=== PATIENT | female | born 1950 | race Two or more races ===

== ENCOUNTER 2020-02-01 15:33 | Inpatient (IN) | payer MEDICARE, OTHER ==
[~2020-02-01] VITALS: Ht 157.5 cm; Wt 102.1 kg
[2020-02-01 16:41] LABS: Basophils # (auto) 0 10 ^3/uL (0-0.2); Basophils % (auto) 0.5 % (0.0-2.0); Eosinophils # (auto) 0 10 ^3/uL (0-0.8); Eosinophils % (auto) 0.8 % (0.0-7.0); Hematocrit 39.9 % (36.0-46.0); Hemoglobin 13.2 g/dL (12.2-16.2); Lymphocytes # (auto) 1.7 10 ^3/uL (0.4-5.4); Lymphocytes % (auto) 29.2 % (10.0-50.0); Mean Corpuscular Hemoglobin 28.3 pg (28.0-32.0); Mean Corpuscular Hgb Conc. 33.1 g/dL (32.0-36.0); Mean Corpuscular Volume 85.5 fL (80.0-100.0); Monocytes # (auto) 0.4 10 ^3/uL (0-1.3); Monocytes % (auto) 7.1 % (0.0-12.0); Neutrophils # (auto) 3.7 10 ^3/uL (1.6-8.6); Neutrophils % (auto) 62.4 % (37.0-80.0); Nucleated Red Blood Cells % 0.1 %; Platelet Count (auto) 217 10^3/uL (140-450); Red Blood Cells 4.67 10^6/uL (4.0-5.20); White Blood Cell 5.9 10^3/uL (4.4-10.8)
[2020-02-01 16:59] LABS: Albumin 3.3 g/dL (3.4-5.0); Anion Gap 6 (5-15); Blood Urea Nitrogen 19 mg/dL (7-18); Calcium 8.7 mg/dL (8.5-10.1); Carbon Dioxide 29 mmol/L (21-32); Chloride 102 mmol/L (98-107); Glucose 325 mg/dL (74-106); INR 1.07 (0.9-1.15); Potassium 3.9 mmol/L (3.5-5.1); Sodium 137 mmol/L (136-145)
[2020-02-01 17:04] LABS: Alanine Aminotransferase 20 U/L (13-56); Alkaline Phosphatase 67 U/L (45-117); Aspartate Aminotransferase 13 U/L (15-37); BUN/Creatinine Ratio 23.2; Bilirubin, Total 0.8 mg/dL (0.2-1.0); GFR African American 88 mL/min; GFR Non-African American 73 mL/min; Total Protein 6.8 g/dL (6.4-8.2)
[2020-02-01] MEDS ORDERED: ENOXAPARIN SOD 80 MG/0.8ML SYRINGE SC ONE (17:30)
[2020-02-01] MEDS ORDERED: LORazepam 2MG/ML-1ML VIAL IV ONE (18:00)
[2020-02-01] MEDS ORDERED: MORPHINE SULF INJ 2 MG/ML SYRINGE 1ML IV PRN ×2 (19:15→19:30)
[2020-02-01] MEDS ORDERED: NITROGLYCERIN 0.4 MG SL TAB SL PRN (19:15)
[2020-02-01] MEDS ORDERED: DEXTROSE (50%) 50ML SYRG IV PRN (19:30)
[2020-02-01] MEDS ORDERED: ACETAMINOPHEN 500 MG TAB PO PRN (19:30)
[2020-02-01] MEDS ORDERED: LACTULOSE 20Gm/30ML SOLN PO PRN (19:30)
[2020-02-01] MEDS ORDERED: traMADol HCL 50 MG TAB PO PRN (19:30)
[2020-02-01] MEDS ORDERED: TEMAZEPAM 15 MG CAP PO PRN (19:30)
[2020-02-01] MEDS ORDERED: PROMETHAZINE HCL 25 MG/ML 1ML IV PRN (19:30)
[2020-02-01] MEDS ORDERED: IOHEXOL 350 MG/ML 100ML IJ ONE (19:36)
[2020-02-01] MEDS ORDERED: ENOXAPARIN SOD 80 MG/0.8ML SYRINGE SC SCH (22:00)
[2020-02-01] MEDS: CARVEDILOL 3.125 MG TAB PO SCH (22:16)
[2020-02-01] MEDS: ACCU-CHEK COMFORT CURVE STRIP VI SCH (22:17)
[2020-02-01] MEDS: InsuLIN REG 1unit/0.01ml Soln (100units/ml) SC SCH (22:17)
[2020-02-01 22:34] VITALS: BP 112/75
--- NOTE | 2020-02-01 22:34 | NUR ---
Telemetry admit from ER Patient admitted to Telemetry unit. Patient oriented to primary RN, unit, room, bed, and unit policies regarding patient care and visiting hours. Patient now on continuous telemetry monitoring, tele box # [id number] and telemetry reading on arrival to unit is sinus rhythm. Patient placed on bedside oxygen 2L NC, weighed by bedscale and encouraged to call if they need something. All questions and concerns addressed, patient verbalized understanding. Safety precautions in place bed is in lowest position and locked, bed rails 2x, bed alarm on. Will continue to monitor patient Q1 and PRN.
[2020-02-01] MEDS ORDERED: METF-371 PO (23:00)
[2020-02-01] MEDS ORDERED: METO10TA3 PO (23:02)
[2020-02-01] MEDS ORDERED: DICY10CA12 PO (23:02)
[2020-02-01] MEDS ORDERED: ENAL2.5T7 PO (23:02)
[2020-02-02 04:01] LABS: Urine Bacteria MOD /hpf (None Seen); Urine Blood Negative /uL (Negative); Urine Mucus FEW (None Seen); Urine WBC 5 /hpf (0 - 5)
[2020-02-02 04:04] LABS: Urine Specific Gravity > 1.035 (1.001-1.035)
[2020-02-02 05:00] VITALS: BP 119/66
[2020-02-02] MEDS: ACCU-CHEK COMFORT CURVE STRIP VI SCH ×4 (06:28→22:00)
[2020-02-02] MEDS: InsuLIN REG 1unit/0.01ml Soln (100units/ml) SC SCH ×4 (06:28→22:04)
--- NOTE | 2020-02-02 07:18 | NUR ---
End of Shift Note Endorsed care to dayshift RN. At this time patient has no s/s of distress or SOB. Awakens and responsive to name and touch.
--- NOTE | 2020-02-02 07:59 | NUR ---
Opening Shift Note Assumed care of patient, awake and alert sitting up at the side of the bed eating. No S/S of distress/SOB or pain. Instructed on POC and to call for assist PRN, will continue to monitor for changes Q1hr and PRN.
[2020-02-02 09:00] VITALS: BP 130/66
[2020-02-02] MEDS: ENALAPRIL MALEATE 2.5 MG TAB PO SCH (09:41)
[2020-02-02] MEDS: CARVEDILOL 3.125 MG TAB PO SCH ×2 (09:41→22:00)
[2020-02-02] MEDS ORDERED: ENOXAPARIN SOD 80 MG/0.8ML SYRINGE SC SCH (10:00)
--- NOTE | 2020-02-02 10:25 | NUR ---
Diarrhea Patient states that she is having diarrhea. Patient was encouraged to notify RN if it continues so we can get stool sample.
[2020-02-02 13:00] VITALS: BP 114/56
[2020-02-02 16:56] VITALS: BP 130/68
[2020-02-02 22:00] VITALS: BP 129/28
[2020-02-02] MEDS ORDERED: INSULIN LANTUS (GLARGINE) 1 /0.01ml (100units/ml) SC SCH (22:00)
[2020-02-02] MEDS: APIXABAN 5 MG TAB PO SCH (22:00)
[2020-02-03 05:00] VITALS: BP 139/72
--- NOTE | 2020-02-03 06:00 | NUR ---
Unable to obtain CDIFF sample Per patient she did not have any diarrhea or bowel movement overnight. Will make dayshift nurse aware. Will continue to monitor patient Q1 and PRN.
[2020-02-03] MEDS: ACCU-CHEK COMFORT CURVE STRIP VI SCH ×2 (06:57→12:44)
[2020-02-03] MEDS: InsuLIN REG 1unit/0.01ml Soln (100units/ml) SC SCH ×2 (07:00→12:45)
--- NOTE | 2020-02-03 07:10 | NUR ---
End of Shift Note Endorsed care to dayshift RN. At this time patient has no s/s of distress or SOB.
[2020-02-03 07:17] LABS: Basophils # (auto) 0 10 ^3/uL (0-0.2); Basophils % (auto) 0.5 % (0.0-2.0); Eosinophils # (auto) 0.1 10 ^3/uL (0-0.8); Eosinophils % (auto) 1.4 % (0.0-7.0); Hematocrit 37.3 % (36.0-46.0); Hemoglobin 12.5 g/dL (12.2-16.2); Lymphocytes # (auto) 1.9 10 ^3/uL (0.4-5.4); Lymphocytes % (auto) 35.8 % (10.0-50.0); Mean Corpuscular Hemoglobin 28.6 pg (28.0-32.0); Mean Corpuscular Hgb Conc. 33.4 g/dL (32.0-36.0); Mean Corpuscular Volume 85.8 fL (80.0-100.0); Monocytes # (auto) 0.5 10 ^3/uL (0-1.3); Monocytes % (auto) 8.7 % (0.0-12.0); Neutrophils # (auto) 2.8 10 ^3/uL (1.6-8.6); Neutrophils % (auto) 53.6 % (37.0-80.0); Nucleated Red Blood Cells % 0.1 %; Platelet Count (auto) 194 10^3/uL (140-450); Red Blood Cells 4.35 10^6/uL (4.0-5.20); Red Cell Distribution Width 14.1 % (11.8-14.3); White Blood Cell 5.3 10^3/uL (4.4-10.8)
[2020-02-03 07:35] LABS: Potassium 3.8 mmol/L (3.5-5.1)
[2020-02-03 07:46] LABS: Calcium 8.8 mg/dL (8.5-10.1); Magnesium 2.1 mg/dL (1.6-2.6); Total Protein 6.3 g/dL (6.4-8.2)
[2020-02-03 09:00] VITALS: BP 145/65
[2020-02-03] MEDS: CARVEDILOL 3.125 MG TAB PO SCH (09:19)
[2020-02-03] MEDS: ENALAPRIL MALEATE 2.5 MG TAB PO SCH (09:19)
[2020-02-03] MEDS: APIXABAN 5 MG TAB PO SCH (09:20)
--- NOTE | 2020-02-03 10:10 | NUR ---
Hospitalist Rounding Dr. Hussein at bedside with patient and Nepali speaking RN.
[2020-02-03 12:34] VITALS: BP 125/86
[2020-02-03] MEDS ORDERED: METF-372 PO (13:31)
[2020-02-03] MEDS ORDERED: LEVO500T21 PO (13:32)
[2020-02-03] MEDS ORDERED: INSLANTI SC (13:34)
[2020-02-03 15:27] VITALS: BP 131/55
--- NOTE | 2020-02-03 15:36 | NUR ---
assessment Patient is a 69 year old female. Per patients daughter Gayle prior to admission patient lived home with her and family and needed assistance. Patient has a cane for home use. Patients PCP is Dr Sawant at [facility]. I informed Gayle of patients home health order and offered her a list of medicare providers. Per Cinthia she has no preference. order has been sent to [facility]. Indra Guerrero at [facility] service will start within 24 to 48 hours. Lakia choudhary has been notified as well as Gayle. Addendum: 02/03/20 at 1544 by Sarah BAUTISTA Amended: Links added.
[2020-02-03 16:39] VITALS: BP 129/65
--- NOTE | 2020-02-03 18:44 | NUR ---
Discharge instructions given as ordered. Encourage to follow up with PMD as instructed. All questions and concerns addressed. Patient verbalized understanding. Medication reconciliation form completed and copy given to patient. Home medications held in Pharmacy returned to patient, and needed vaccines given. IV removed with catheter intact and pressure dressing applied. Telemetry unit returned to ICU. Patient taken to vehicle via wheelchair with all personal belongings, accompanied by staff. No distress noted at time of departure.
[2020-02-09] MEDS ORDERED: APIXABAN 5 MG TAB PO SCH (22:00)
== END 2020-02-03 18:44 | disposition home health service (06) | DRG 299 ==
LOC: ER 15:33 → TELE 15:34 → TELE-WESTW 22:34
PROVIDERS: ADMIT Internal Medicine; ATTEND Internal Medicine
DX: I82.412 Acute embolism and thrombosis of left femoral vein (principal); I26.99 Other pulmonary embolism without acute cor pulmonale; Z68.41 Body mass index [BMI] 40.0-44.9, adult; I10 Essential (primary) hypertension; E11.65 Type 2 diabetes mellitus with hyperglycemia; E04.2 Nontoxic multinodular goiter; E78.5 Hyperlipidemia, unspecified; E66.9 Obesity, unspecified; Z82.49 Family history of ischemic heart disease and other diseases of the circulatory system; Z83.3 Family history of diabetes mellitus
CPT/HCPCS: 36415; 71275; 76536; 80053; 80061; 81001; 82550; 82962; 83036; 83735; 83880; 84436; 84443; 84481; 84484; 85025; 85610; 85730; 87086; 93306; 93971; 96372; 96374; 97163; G0378; J1815

== ENCOUNTER → 2020-02-27 | Outpatient (CLI) | payer MEDICARE ==
[~2020-02-27] VITALS: Ht 157.5 cm; Wt 83.9 kg
[~2020-02-27] MED LIST: ADENOSINE 70 MG in GIVE UN-DILUTED 0 ML IV ONE; ADENOSINE 90 MG/30 ML INJ IV ONE; DICY10CA12 PO; ENAL2.5T7 PO; INSLANTI SC; LEVO500T21 PO; METF-372 PO; METO10TA3 PO
== END | disposition home or self-care (01) ==
LOC: Rad HDHVI 02-12 13:20
PROVIDERS: ATTEND Internal Medicine
DX: I10 Essential (primary) hypertension (principal); E11.9 Type 2 diabetes mellitus without complications; I82.409 Acute embolism and thrombosis of unspecified deep veins of unspecified lower extremity; I26.99 Other pulmonary embolism without acute cor pulmonale; E78.5 Hyperlipidemia, unspecified; R63.8 Other symptoms and signs concerning food and fluid intake; R07.89 Other chest pain
CPT/HCPCS: 78452; 93005; 96374; 96375; A9500; J0153

== ENCOUNTER → 2020-03-06 | Outpatient (CLI) | payer MEDICARE ==
[~2020-03-06] MED LIST changes: -ADENOSINE 70 MG in GIVE UN-DILUTED 0 ML IV ONE; -ADENOSINE 90 MG/30 ML INJ IV ONE
[2020-03-06 12:36] LABS: Potassium 4.1 mmol/L (3.5-5.1)
[2020-03-06 12:43] LABS: Albumin 3.4 g/dL (3.4-5.0); Calcium 9.1 mg/dL (8.5-10.1); Total Protein 7.2 g/dL (6.4-8.2)
[2020-03-06 12:48] LABS: Free T4 (Free Thyroxine) 1.39 ng/dL (0.89-1.76)
[2020-03-06 12:50] LABS: T3 Total 0.81 ng/mL (0.60-1.81)
== END | disposition home or self-care (01) ==
LOC: LAB 08:42
PROVIDERS: ATTEND Internal Medicine Cardiovascular Disease
DX: E11.9 Type 2 diabetes mellitus without complications (principal); I10 Essential (primary) hypertension; E03.9 Hypothyroidism, unspecified
CPT/HCPCS: 36415; 80053; 83036; 84439; 84443; 84480

== ENCOUNTER → 2020-04-07 | Outpatient (CLI) | payer MEDICARE | END | disposition home or self-care (01) | LOC: Rad HDHVI 15:12 | PROVIDERS: ATTEND Internal Medicine Cardiovascular Disease | DX: M47.812 Spondylosis without myelopathy or radiculopathy, cervical region (principal); M85.88 Other specified disorders of bone density and structure, other site; M54.2 Cervicalgia; M46.02 Spinal enthesopathy, cervical region; M48.8X2 Other specified spondylopathies, cervical region; M19.90 Unspecified osteoarthritis, unspecified site | CPT/HCPCS: 72040 ==

== ENCOUNTER 2020-07-07 12:39 | Emergency (ER) | payer MEDICARE ==
[~2020-07-07] VITALS: Ht 160 cm; Wt 85.3 kg
[~2020-07-07 12:39] MED LIST changes: -LEVO500T21 PO; +LEVO500T31 PO
[2020-07-07 14:47] VITALS: BP 112/81
== END 2020-07-07 15:30 | disposition home or self-care (01) ==
LOC: ER 12:39
DX: U07.1 COVID-19 (principal); M54.16 Radiculopathy, lumbar region; M19.90 Unspecified osteoarthritis, unspecified site; E11.9 Type 2 diabetes mellitus without complications; I10 Essential (primary) hypertension
CPT/HCPCS: 71045

== ENCOUNTER 2020-07-11 22:50 | Inpatient (IN) | payer MEDICARE ==
[~2020-07-11] VITALS: Ht 152.4 cm; Wt 84.0 kg
[2020-07-12 00:36] LABS: Basophils # (auto) 0 10 ^3/uL (0-0.2); Basophils % (auto) 0.3 % (0.0-2.0); Eosinophils # (auto) 0 10 ^3/uL (0-0.8); Hematocrit 45.8 % (36.0-46.0); Hemoglobin 15.4 g/dL (12.2-16.2); Lymphocytes # (auto) 0.7 10 ^3/uL (0.4-5.4); Lymphocytes % (auto) 9.5 % (10.0-50.0); Mean Corpuscular Hemoglobin 28.4 pg (28.0-32.0); Mean Corpuscular Hgb Conc. 33.6 g/dL (32.0-36.0); Mean Corpuscular Volume 84.6 fL (80.0-100.0); Monocytes # (auto) 0.8 10 ^3/uL (0-1.3); Monocytes % (auto) 10.1 % (0.0-12.0); Neutrophils # (auto) 6.1 10 ^3/uL (1.6-8.6); Neutrophils % (auto) 80.1 % (37.0-80.0); Nucleated Red Blood Cells % 0.1 %; Platelet Count (auto) 228 10^3/uL (140-450); Red Blood Cells 5.42 10^6/uL (4.0-5.20); Red Cell Distribution Width 14.1 % (11.8-14.3); White Blood Cell 7.6 10^3/uL (4.4-10.8)
[2020-07-12 00:55] LABS: Alanine Aminotransferase 23 U/L (13-56); Albumin 2.5 g/dL (3.4-5.0); Anion Gap 18 (5-15); Aspartate Aminotransferase 48 U/L (15-37); BUN/Creatinine Ratio 18.3; Blood Urea Nitrogen 26 mg/dL (7-18); Calcium 9.1 mg/dL (8.5-10.1); Carbon Dioxide 20 mmol/L (21-32); Chloride 95 mmol/L (98-107); GFR African American 47 mL/min; GFR Non-African American 39 mL/min; Sodium 133 mmol/L (136-145)
[2020-07-12 00:57] LABS: INR 1.1 (0.9-1.15); Partial Thromboplastin Time 30.3 sec (23.0-31.2)
[2020-07-12 00:59] LABS: Alkaline Phosphatase 56 U/L (45-117); Bilirubin, Total 1.1 mg/dL (0.2-1.0); Total Protein 7.2 g/dL (6.4-8.2)
[2020-07-12 01:07] LABS: Glucose 429 mg/dL (74-106)
[2020-07-12] MEDS ORDERED: dilTIAZem 25 MG/5 ML VIAL IV ONE (02:00)
[2020-07-12] MEDS ORDERED: SODIUM CHLORIDE 0.9% 1,000 ML IV ONE ×2 (02:00→11:00)
[2020-07-12 03:28] LABS: Lactic Acid w/Reflex 2.8 mmol/L (0.4-2.0)
[2020-07-12] MEDS ORDERED: InsuLIN REG 1unit/0.01ml Soln (100units/ml) IV ONE (03:45)
[2020-07-12] MEDS ORDERED: cefTRIAXone 1GM/50ML D5W 50 ML IV ONE (03:45)
[2020-07-12] MEDS: SODIUM CHLORIDE 0.9% 1,000 ML IV SCH ×4 (04:31→22:30)
[2020-07-12] MEDS ORDERED: ALBUMIN 5% 250 ML IV ONE (05:15)
[2020-07-12] MEDS ORDERED: DEXTROSE (50%) 50ML SYRG IV PRN (05:15)
[2020-07-12] MEDS ORDERED: DOCUSATE SOD 100 MG CAP PO PRN (05:15)
[2020-07-12] MEDS ORDERED: HYDROcodone-ACET 5/325MG TAB PO PRN (05:15)
[2020-07-12] MEDS ORDERED: MORPHINE SULF INJ 2 MG/ML SYRINGE 1ML IV PRN (05:15)
[2020-07-12] MEDS ORDERED: ONDANSETRON HCL 4 MG/2 ML VIAL IV PRN (05:15)
[2020-07-12] MEDS ORDERED: NITROGLYCERIN 0.4 MG SL TAB SL PRN (05:15)
[2020-07-12] MEDS ORDERED: ACETAMINOPHEN 500 MG TAB PO PRN (05:15)
[2020-07-12] MEDS: INSULIN LANTUS (GLARGINE) 1 /0.01ml (100units/ml) SC SCH ×2 (06:43→21:54)
[2020-07-12] MEDS: InsuLIN REG 1unit/0.01ml Soln (100units/ml) SC SCH ×5 (08:28→23:49)
[2020-07-12] MEDS: ACCU-CHEK COMFORT CURVE STRIP VI SCH ×5 (08:28→23:48)
[2020-07-12] MEDS ORDERED: levoFLOXacin 500MG 100 ML IV SCH (10:00)
[2020-07-12] MEDS ORDERED: REMDESIVIR PER PHARMACY 0 ML IV SCH (11:00)
[2020-07-12] MEDS ORDERED: diphenhdrAMINE HCL 50 MG/1 ML VL IV PRN (11:00)
[2020-07-12] MEDS ORDERED: levoFLOXacin 500MG 100 ML IV ONE (11:15)
[2020-07-12] MEDS: HEPARIN SODIUM (PORCINE) 5000 UNITS/ML 1ML VIAL SC SCH ×2 (11:33→21:54)
[2020-07-12] MEDS: CHOLECALCIFEROL (VITD3) 2,000 UNIT CAP/TAB PO SCH (11:36)
[2020-07-12] MEDS: ASCORBIC ACID 1,000 MG TAB PO SCH (11:36)
[2020-07-12] MEDS: MULTIPLE VITAMIN TAB PO SCH (11:37)
[2020-07-12] MEDS: ZINC SULFATE 220mg CAP or TAB PO SCH (11:37)
[2020-07-12] MEDS: FAMOTIDINE (10MG/ML) 2ML VL IV SCH ×2 (11:39→21:47)
[2020-07-12] MEDS: DexAMETHasone SOD PHOS 10MG/1ML VIAL INJ IV SCH (11:39)
[2020-07-12 12:00] VITALS: BP 112/51
[2020-07-12] MEDS: DOXYCYCLINE 100MG/250ML 250 ML IV SCH ×2 (12:05→21:47)
[2020-07-12] MEDS: BUDESONIDE (INHALATION) 180 MCG IH IN SCH ×2 (14:40→19:56)
[2020-07-12] MEDS ORDERED: REMDESIVIR 200 MG in NS 210ml LOADING DOSE ADULT IV ONE (15:00)
[2020-07-12 16:00] VITALS: BP 114/66
[2020-07-12] MEDS: ALBUTEROL SULF HFA 90MCG INH 200DOSE IN PRN (19:57)
[2020-07-12 23:24] VITALS: BP 135/75
[2020-07-12 23:40] VITALS: BP 131/83
[2020-07-12] MEDS ORDERED: VANCOMYCIN 1GM/250ML 250 ML IV ONE (23:45)
[2020-07-12] MEDS ORDERED: VANCOMYCIN PER PHARMACY 0 MG IV SCH (23:45)
[2020-07-13] VITALS: BP 132/72
[2020-07-13 02:11] VITALS: BP 132/71
[2020-07-13] MEDS: ACCU-CHEK COMFORT CURVE STRIP VI SCH ×3 (04:00→18:00)
[2020-07-13] MEDS: InsuLIN REG 1unit/0.01ml Soln (100units/ml) SC SCH ×3 (04:00→18:00)
[2020-07-13] MEDS ORDERED: DICY20TA10 PO (06:34)
[2020-07-13] MEDS ORDERED: APIX5TAB PO (06:41)
[2020-07-13] MEDS ORDERED: DAPA1TAB4 PO (06:41)
[2020-07-13] MEDS: INSULIN LANTUS (GLARGINE) 1 /0.01ml (100units/ml) SC SCH ×2 (06:47→22:00)
[2020-07-13] MEDS ORDERED: IVERMECTIN 3 MG TAB PO ONE (07:00)
[2020-07-13] MEDS: ALBUTEROL SULF HFA 90MCG INH 200DOSE IN PRN ×2 (07:15→20:59)
[2020-07-13] MEDS: BUDESONIDE (INHALATION) 180 MCG IH IN SCH ×2 (07:15→20:58)
[2020-07-13 08:00] VITALS: BP 138/85
[2020-07-13 08:19] LABS: Basophils # (auto) 0 10 ^3/uL (0-0.2); Basophils % (auto) 0.1 % (0.0-2.0); Eosinophils # (auto) 0 10 ^3/uL (0-0.8); Hematocrit 38.3 % (36.0-46.0); Lymphocytes # (auto) 0.4 10 ^3/uL (0.4-5.4); Lymphocytes % (auto) 5.9 % (10.0-50.0); Mean Corpuscular Hemoglobin 27.7 pg (28.0-32.0); Mean Corpuscular Volume 81.4 fL (80.0-100.0); Monocytes # (auto) 0.4 10 ^3/uL (0-1.3); Monocytes % (auto) 5.6 % (0.0-12.0); Neutrophils # (auto) 6.4 10 ^3/uL (1.6-8.6); Neutrophils % (auto) 88.4 % (37.0-80.0); Platelet Count (auto) 198 10^3/uL (140-450); White Blood Cell 7.2 10^3/uL (4.4-10.8)
[2020-07-13 08:41] LABS: Albumin 2.4 g/dL (3.4-5.0); BUN/Creatinine Ratio 59.1; Calcium 9.1 mg/dL (8.5-10.1); Potassium 3.7 mmol/L (3.5-5.1)
[2020-07-13 08:43] LABS: Bilirubin, Total 0.6 mg/dL (0.2-1.0); Total Protein 6.3 g/dL (6.4-8.2)
[2020-07-13] MEDS: DexAMETHasone SOD PHOS 10MG/1ML VIAL INJ IV SCH (09:49)
[2020-07-13] MEDS: ZINC SULFATE 220mg CAP or TAB PO SCH (09:49)
[2020-07-13] MEDS: FAMOTIDINE (10MG/ML) 2ML VL IV SCH ×2 (09:49→23:45)
[2020-07-13] MEDS: MULTIPLE VITAMIN TAB PO SCH (09:50)
[2020-07-13] MEDS: SODIUM CHLORIDE 0.9% 1,000 ML IV SCH (09:50)
[2020-07-13] MEDS: ASCORBIC ACID 1,000 MG TAB PO SCH (09:50)
[2020-07-13] MEDS: CHOLECALCIFEROL (VITD3) 2,000 UNIT CAP/TAB PO SCH (09:50)
[2020-07-13] MEDS ORDERED: levoFLOXacin 250MG 50 ML IV SCH ×2 (10:00)
[2020-07-13] MEDS ORDERED: levoFLOXacin 500MG 100 ML IV SCH (10:00)
[2020-07-13] MEDS: DOXYCYCLINE 100MG/250ML 250 ML IV SCH ×2 (10:03→23:42)
[2020-07-13] MEDS: HEPARIN SODIUM (PORCINE) 5000 UNITS/ML 1ML VIAL SC SCH (10:18)
[2020-07-13] MEDS ORDERED: VANCOMYCIN 1GM/250ML 250 ML IV SCH (12:00)
[2020-07-13] MEDS ORDERED: ENOXAPARIN SOD 80 MG/0.8ML SYRINGE SC ONE (13:15)
[2020-07-13] MEDS ORDERED: DEXTROSE (50%) 50ML SYRG IV PRN (13:15)
[2020-07-13] MEDS ORDERED: POTASSIUM CHL 20 Meq TABLET PO ONE (13:15)
[2020-07-13] MEDS ORDERED: FUROSEMIDE 20 MG/2 ML VIAL IV ONE (13:15)
[2020-07-13] MEDS: REMDESIVIR 100mg 100 MG in SODIUM CHL 0.9% 230 ML IV SCH (14:45)
[2020-07-13 16:00] VITALS: BP 106/78
[2020-07-13] MEDS ORDERED: methylPREDNISolone SOD SUCC 40 MG/ML VL IV ONE (16:30)
[2020-07-13] MEDS ORDERED: ACETAMINOPHEN 650 mg PER 20.3 mL UD PO ONE (16:30)
[2020-07-13] MEDS ORDERED: diphenhdrAMINE HCL 50 MG/1 ML VL IV ONE (16:30)
[2020-07-13] MEDS ORDERED: TOCILIZUMAB 400 MG in SODIUM CHL 0.9% 80 ML IV ONE (17:00)
[2020-07-13] MEDS ORDERED: LORazepam 2MG/ML-1ML VIAL ONE (17:54)
[2020-07-13] MEDS: Glucerna Carbsteady SHAKE Vanilla 8oz PO SCH (18:00)
[2020-07-13] MEDS ORDERED: LORazepam 2MG/ML-1ML VIAL IV PRN (18:30)
[2020-07-13] MEDS ORDERED: LORazepam 2MG/ML-1ML VIAL IV ONE (20:30)
[2020-07-13] MEDS ORDERED: HALOPERIDOL LACTATE 5 MG/ML INJ VIAL IM ONE (20:45)
[2020-07-13] MEDS: ENOXAPARIN SOD 80 MG/0.8ML SYRINGE SC SCH (22:31)
[2020-07-14] VITALS (35 sets, daily range): BP systolic 91–153; BP diastolic 52–91
[2020-07-14] MEDS: ACCU-CHEK COMFORT CURVE STRIP VI SCH ×4 (00:16→18:01)
[2020-07-14] MEDS: InsuLIN REG 1unit/0.01ml Soln (100units/ml) SC SCH ×4 (05:35→18:01)
[2020-07-14 06:28] LABS: Basophils # (auto) 0 10 ^3/uL (0-0.2); Basophils % (auto) 0.1 % (0.0-2.0); Eosinophils # (auto) 0 10 ^3/uL (0-0.8); Hematocrit 42.3 % (36.0-46.0); Hemoglobin 14.5 g/dL (12.2-16.2); Lymphocytes # (auto) 0.5 10 ^3/uL (0.4-5.4); Lymphocytes % (auto) 3.1 % (10.0-50.0); Mean Corpuscular Hgb Conc. 34.4 g/dL (32.0-36.0); Mean Corpuscular Volume 81.4 fL (80.0-100.0); Monocytes # (auto) 0.9 10 ^3/uL (0-1.3); Neutrophils # (auto) 13.5 10 ^3/uL (1.6-8.6); Neutrophils % (auto) 90.8 % (37.0-80.0); Nucleated Red Blood Cells % 0.1 %; Platelet Count (auto) 249 10^3/uL (140-450); Red Blood Cells 5.19 10^6/uL (4.0-5.20); Red Cell Distribution Width 14.1 % (11.8-14.3); White Blood Cell 14.8 10^3/uL (4.4-10.8)
[2020-07-14] MEDS ORDERED: LORazepam 2MG/ML-1ML VIAL IV PRN (06:30)
[2020-07-14 06:35] LABS: Albumin 2.7 g/dL (3.4-5.0); Calcium 9.5 mg/dL (8.5-10.1); Potassium 3.5 mmol/L (3.5-5.1)
[2020-07-14 06:44] LABS: BUN/Creatinine Ratio 44.2; Bilirubin, Total 0.9 mg/dL (0.2-1.0); CRP High Sensitivity 7.92 mg/dL (< 0.3)
[2020-07-14] MEDS: INSULIN LANTUS (GLARGINE) 1 /0.01ml (100units/ml) SC SCH (06:45)
[2020-07-14] MEDS: BUDESONIDE (INHALATION) 180 MCG IH IN SCH (07:20)
[2020-07-14] MEDS: Glucerna Carbsteady SHAKE Vanilla 8oz PO SCH ×2 (08:00→12:53)
[2020-07-14] MEDS: DOXYCYCLINE 100MG/250ML 250 ML IV SCH ×2 (08:17→20:00)
[2020-07-14] MEDS ORDERED: diphenhdrAMINE HCL 50 MG/1 ML VL IV ONE (10:00)
[2020-07-14] MEDS ORDERED: ACETAMINOPHEN 650 mg PER 20.3 mL UD PO ONE (10:00)
[2020-07-14] MEDS: MULTIPLE VITAMIN TAB PO SCH (10:00)
[2020-07-14] MEDS: ZINC SULFATE 220mg CAP or TAB PO SCH (10:00)
[2020-07-14] MEDS: POTASSIUM CHL 20 Meq TABLET PO SCH (10:00)
[2020-07-14] MEDS: CHOLECALCIFEROL (VITD3) 2,000 UNIT CAP/TAB PO SCH (10:00)
[2020-07-14] MEDS: ASCORBIC ACID 1,000 MG TAB PO SCH (10:00)
[2020-07-14] MEDS: ENOXAPARIN SOD 80 MG/0.8ML SYRINGE SC SCH ×2 (10:10→22:07)
[2020-07-14] MEDS: DexAMETHasone SOD PHOS 10MG/1ML VIAL INJ IV SCH (10:11)
[2020-07-14] MEDS: FUROSEMIDE 20 MG/2 ML VIAL IV SCH (10:11)
[2020-07-14] MEDS: FAMOTIDINE (10MG/ML) 2ML VL IV SCH ×2 (10:12→22:07)
[2020-07-14] MEDS ORDERED: TOCILIZUMAB 400 MG in SODIUM CHL 0.9% 80 ML IV ONE (10:30)
[2020-07-14] MEDS ORDERED: VANCOMYCIN PER PHARMACY 0 MG IV SCH (11:15)
[2020-07-14] MEDS: VANCOMYCIN 1GM/250ML 250 ML IV SCH (12:59)
[2020-07-14] MEDS ORDERED: ROCURONIUM 10MG/ML 10ML VIAL IV ONE (14:23)
[2020-07-14] MEDS ORDERED: SUCCINYLCHOLINE CHLORIDE 20 MG/ML 10ML VIAL IV ONE (14:23)
[2020-07-14] MEDS ORDERED: ETOMIDATE (2MG/ML) 20ML VIAL IV ONE (14:23)
[2020-07-14] MEDS ORDERED: fentaNYL Drip 2500mCg/250mlNS 250 ML IV SCH (14:30)
[2020-07-14] MEDS: MIDAZOLAM DRIP 50 mg/50mL 50 ML IV SCH (14:30)
[2020-07-14] MEDS ORDERED: LORazepam 2MG/ML-1ML VIAL ONE (14:56)
[2020-07-14] MEDS: PROPOFOL 100 ML IV SCH ×2 (15:07→23:00)
[2020-07-14] MEDS: REMDESIVIR 100mg 100 MG in SODIUM CHL 0.9% 230 ML IV SCH (17:21)
[2020-07-14] MEDS: NOREPINEPHRINE 8 MG/250ML KIT 250 ML IV SCH (18:30)
[2020-07-15] VITALS (99 sets, daily range): BP systolic 97–137; BP diastolic 46–89
[2020-07-15] MEDS: VANCOMYCIN 1GM/250ML 250 ML IV SCH ×2 (00:28→11:59)
[2020-07-15] MEDS: ACCU-CHEK COMFORT CURVE STRIP VI SCH ×5 (00:29→18:04)
[2020-07-15 05:38] LABS: Basophils # (auto) 0 10 ^3/uL (0-0.2); Basophils % (auto) 0.2 % (0.0-2.0); Eosinophils # (auto) 0 10 ^3/uL (0-0.8); Hematocrit 39.2 % (36.0-46.0); Hemoglobin 13.3 g/dL (12.2-16.2); Lymphocytes # (auto) 0.7 10 ^3/uL (0.4-5.4); Lymphocytes % (auto) 6.7 % (10.0-50.0); Mean Corpuscular Hgb Conc. 33.8 g/dL (32.0-36.0); Mean Corpuscular Volume 82.9 fL (80.0-100.0); Monocytes # (auto) 0.8 10 ^3/uL (0-1.3); Monocytes % (auto) 7.9 % (0.0-12.0); Neutrophils # (auto) 8.4 10 ^3/uL (1.6-8.6); Neutrophils % (auto) 85.2 % (37.0-80.0); Nucleated Red Blood Cells % 0.2 %; Platelet Count (auto) 214 10^3/uL (140-450); Red Blood Cells 4.73 10^6/uL (4.0-5.20); Red Cell Distribution Width 14.3 % (11.8-14.3); White Blood Cell 9.9 10^3/uL (4.4-10.8)
[2020-07-15] MEDS: InsuLIN REG 1unit/0.01ml Soln (100units/ml) SC SCH ×4 (06:00→18:34)
[2020-07-15 06:37] LABS: Albumin 2.3 g/dL (3.4-5.0); Potassium 3.8 mmol/L (3.5-5.1)
[2020-07-15] MEDS: PROPOFOL 100 ML IV SCH ×3 (06:38→19:34)
[2020-07-15 06:39] LABS: BUN/Creatinine Ratio 63.9
[2020-07-15 06:42] LABS: Total Protein 5.6 g/dL (6.4-8.2)
[2020-07-15] MEDS: DOXYCYCLINE 100MG/250ML 250 ML IV SCH ×2 (08:14→20:00)
[2020-07-15] MEDS: POTASSIUM CHL 20 Meq TABLET PO SCH (10:00)
[2020-07-15] MEDS: DexAMETHasone SOD PHOS 10MG/1ML VIAL INJ IV SCH (10:18)
[2020-07-15] MEDS: ZINC SULFATE 220mg CAP or TAB PO SCH (10:19)
[2020-07-15] MEDS: FUROSEMIDE 20 MG/2 ML VIAL IV SCH (10:19)
[2020-07-15] MEDS: FAMOTIDINE (10MG/ML) 2ML VL IV SCH ×2 (10:19→22:00)
[2020-07-15] MEDS: ASCORBIC ACID 1,000 MG TAB PO SCH (10:21)
[2020-07-15] MEDS: ENOXAPARIN SOD 80 MG/0.8ML SYRINGE SC SCH ×2 (10:22→22:00)
[2020-07-15] MEDS: CHOLECALCIFEROL (VITD3) 2,000 UNIT CAP/TAB PO SCH (10:22)
[2020-07-15 11:39] LABS: Urine Bacteria FEW /hpf (None Seen); Urine Blood Negative /uL (Negative); Urine Budding Yeast MANY /hpf (None Seen); Urine Hyaline Cast MOD /lpf (0 - 2); Urine Mucus FEW (None Seen); Urine WBC 10 /hpf (0 - 5)
[2020-07-15] MEDS ORDERED: ACETAMINOPHEN 650 mg PER 20.3 mL UD PO ONE (13:30)
[2020-07-15] MEDS ORDERED: methylPREDNISolone SOD SUCC 40 MG/ML VL IV ONE (13:30)
[2020-07-15] MEDS ORDERED: diphenhdrAMINE HCL 50 MG/1 ML VL IV ONE (13:30)
[2020-07-15] MEDS ORDERED: TOCILIZUMAB 400 MG in SODIUM CHL 0.9% 80 ML IV ONE (14:00)
[2020-07-15] MEDS: MIDAZOLAM DRIP 50 mg/50mL 50 ML IV SCH (14:30)
[2020-07-15] MEDS ORDERED: DEXTROSE (50%) 50ML SYRG IV PRN (14:45)
[2020-07-15] MEDS: fentaNYL Drip 2500mCg/250mlNS 250 ML IV SCH (15:45)
[2020-07-15] MEDS: REMDESIVIR 100mg 100 MG in SODIUM CHL 0.9% 230 ML IV SCH (16:20)
[2020-07-15] MEDS: NOREPINEPHRINE 8 MG/250ML KIT 250 ML IV SCH (18:30)
[2020-07-16] VITALS (99 sets, daily range): BP systolic 80–159; BP diastolic 41–82
[2020-07-16 04:09] LABS: Basophils # (auto) 0 10 ^3/uL (0-0.2); Basophils % (auto) 0.2 % (0.0-2.0); Eosinophils # (auto) 0 10 ^3/uL (0-0.8); Hematocrit 37.8 % (36.0-46.0); Hemoglobin 13.2 g/dL (12.2-16.2); Lymphocytes # (auto) 0.4 10 ^3/uL (0.4-5.4); Lymphocytes % (auto) 6.1 % (10.0-50.0); Mean Corpuscular Hemoglobin 28.6 pg (28.0-32.0); Mean Corpuscular Hgb Conc. 34.8 g/dL (32.0-36.0); Mean Corpuscular Volume 82.2 fL (80.0-100.0); Monocytes # (auto) 0.5 10 ^3/uL (0-1.3); Monocytes % (auto) 7.1 % (0.0-12.0); Neutrophils # (auto) 5.8 10 ^3/uL (1.6-8.6); Neutrophils % (auto) 86.6 % (37.0-80.0); Nucleated Red Blood Cells % 0.1 %; Platelet Count (auto) 200 10^3/uL (140-450); Red Cell Distribution Width 13.9 % (11.8-14.3); White Blood Cell 6.7 10^3/uL (4.4-10.8)
[2020-07-16 04:21] LABS: Albumin 2.1 g/dL (3.4-5.0); Calcium 8.2 mg/dL (8.5-10.1); Potassium 3.2 mmol/L (3.5-5.1)
[2020-07-16 04:29] LABS: BUN/Creatinine Ratio 54.1; Bilirubin, Total 0.9 mg/dL (0.2-1.0); CRP High Sensitivity 2.52 mg/dL (< 0.3); Total Protein 5.3 g/dL (6.4-8.2)
[2020-07-16] MEDS: ACCU-CHEK COMFORT CURVE STRIP VI SCH ×8 (06:03→17:59)
[2020-07-16] MEDS: InsuLIN REG 1unit/0.01ml Soln (100units/ml) SC SCH ×4 (06:05→18:08)
[2020-07-16] MEDS: FUROSEMIDE 20 MG/2 ML VIAL IV SCH (09:06)
[2020-07-16] MEDS: DexAMETHasone SOD PHOS 10MG/1ML VIAL INJ IV SCH (09:06)
[2020-07-16] MEDS: POTASSIUM EFFERVESENT TAB 25 MEQ GT SCH (09:06)
[2020-07-16] MEDS: CHOLECALCIFEROL (VITD3) 2,000 UNIT CAP/TAB PO SCH (09:07)
[2020-07-16] MEDS: ASCORBIC ACID 1,000 MG TAB PO SCH (09:07)
[2020-07-16] MEDS: ZINC SULFATE 220mg CAP or TAB PO SCH (09:07)
[2020-07-16] MEDS: ENOXAPARIN SOD 80 MG/0.8ML SYRINGE SC SCH ×2 (09:07→22:08)
[2020-07-16] MEDS: FAMOTIDINE (10MG/ML) 2ML VL IV SCH ×2 (09:07→22:08)
[2020-07-16] MEDS: PROPOFOL 100 ML IV SCH ×2 (09:08→18:45)
[2020-07-16] MEDS: VANCOMYCIN 1GM/250ML 250 ML IV SCH ×2 (11:57)
[2020-07-16] MEDS: DOXYCYCLINE 100MG/250ML 250 ML IV SCH ×2 (12:48→20:00)
[2020-07-16] MEDS: MIDAZOLAM DRIP 50 mg/50mL 50 ML IV SCH (14:30)
[2020-07-16] MEDS ORDERED: POTASSIUM EFFERVESENT TAB 25 MEQ GT ONE (14:45)
[2020-07-16] MEDS ORDERED: INSULIN LANTUS (GLARGINE) 1 /0.01ml (100units/ml) SC ONE (15:00)
[2020-07-16] MEDS: REMDESIVIR 100mg 100 MG in SODIUM CHL 0.9% 230 ML IV SCH (15:19)
[2020-07-16] MEDS: NOREPINEPHRINE 8 MG/250ML KIT 250 ML IV SCH (18:30)
[2020-07-16] MEDS: fentaNYL Drip 2500mCg/250mlNS 250 ML IV SCH (19:00)
[2020-07-16] MEDS: Glucerna 1.2 Cal 1Liter BOTTLE GT SCH (20:00)
[2020-07-17] VITALS (100 sets, daily range): BP systolic 84–185; BP diastolic 41–113
[2020-07-17] MEDS: ACCU-CHEK COMFORT CURVE STRIP VI SCH ×8 (00:08→17:47)
[2020-07-17] MEDS: InsuLIN REG 1unit/0.01ml Soln (100units/ml) SC SCH ×4 (00:09→18:42)
[2020-07-17] MEDS: PROPOFOL 100 ML IV SCH ×3 (02:58→18:25)
[2020-07-17 04:40] LABS: Basophils # (auto) 0 10 ^3/uL (0-0.2); Basophils % (auto) 0.2 % (0.0-2.0); Eosinophils # (auto) 0 10 ^3/uL (0-0.8); Eosinophils % (auto) 0.2 % (0.0-7.0); Hematocrit 39.4 % (36.0-46.0); Hemoglobin 13.4 g/dL (12.2-16.2); Lymphocytes # (auto) 0.8 10 ^3/uL (0.4-5.4); Lymphocytes % (auto) 13.2 % (10.0-50.0); Mean Corpuscular Hgb Conc. 34.1 g/dL (32.0-36.0); Mean Corpuscular Volume 82.1 fL (80.0-100.0); Monocytes # (auto) 0.5 10 ^3/uL (0-1.3); Monocytes % (auto) 8.5 % (0.0-12.0); Neutrophils # (auto) 4.9 10 ^3/uL (1.6-8.6); Neutrophils % (auto) 77.9 % (37.0-80.0); Nucleated Red Blood Cells % 0.2 %; Platelet Count (auto) 218 10^3/uL (140-450); Red Cell Distribution Width 14.5 % (11.8-14.3); White Blood Cell 6.3 10^3/uL (4.4-10.8)
[2020-07-17 05:10] LABS: BUN/Creatinine Ratio 66.2; Calcium 8.1 mg/dL (8.5-10.1); Potassium 3.7 mmol/L (3.5-5.1)
[2020-07-17] MEDS: POTASSIUM EFFERVESENT TAB 25 MEQ GT SCH (09:13)
[2020-07-17] MEDS: DexAMETHasone SOD PHOS 10MG/1ML VIAL INJ IV SCH (09:13)
[2020-07-17] MEDS: FUROSEMIDE 20 MG/2 ML VIAL IV SCH (09:14)
[2020-07-17] MEDS: ZINC SULFATE 220mg CAP or TAB PO SCH (09:14)
[2020-07-17] MEDS: FAMOTIDINE (10MG/ML) 2ML VL IV SCH ×2 (09:14→22:00)
[2020-07-17] MEDS: ENOXAPARIN SOD 80 MG/0.8ML SYRINGE SC SCH ×2 (09:15→22:00)
[2020-07-17] MEDS: CHOLECALCIFEROL (VITD3) 2,000 UNIT CAP/TAB PO SCH (09:15)
[2020-07-17] MEDS: ASCORBIC ACID 1,000 MG TAB PO SCH (09:15)
[2020-07-17] MEDS: INSULIN LANTUS (GLARGINE) 1 /0.01ml (100units/ml) SC SCH (09:16)
[2020-07-17 15:00] LABS: INR 1.32 (0.9-1.15); Partial Thromboplastin Time 38.7 sec (23.0-31.2)
[2020-07-17] MEDS: VANCOMYCIN 750mg/250ml 250 ML IV SCH (17:46)
[2020-07-17] MEDS: fentaNYL Drip 2500mCg/250mlNS 250 ML IV SCH (19:00)
[2020-07-17] MEDS: Glucerna 1.2 Cal 1Liter BOTTLE GT SCH (20:00)
[2020-07-17] MEDS: SODIUM CHLOR 0.9% PF (SALINE LOCK) 10ML VIAL/SYR IV SCH (22:00)
[2020-07-18] VITALS (86 sets, daily range): BP systolic 87–194; BP diastolic 36–151
[2020-07-18] MEDS: ACCU-CHEK COMFORT CURVE STRIP VI SCH ×8 (00:08→18:17)
[2020-07-18] MEDS: InsuLIN REG 1unit/0.01ml Soln (100units/ml) SC SCH ×4 (00:13→18:19)
[2020-07-18] MEDS: PROPOFOL 100 ML IV SCH ×2 (04:41)
[2020-07-18 04:44] LABS: Calcium 7.6 mg/dL (8.5-10.1); Potassium 3.6 mmol/L (3.5-5.1)
[2020-07-18 04:46] LABS: BUN/Creatinine Ratio 66.7
[2020-07-18] MEDS: VANCOMYCIN 750mg/250ml 250 ML IV SCH ×2 (06:13→21:00)
[2020-07-18] MEDS: ENOXAPARIN SOD 80 MG/0.8ML SYRINGE SC SCH ×2 (09:13→22:00)
[2020-07-18] MEDS: FAMOTIDINE (10MG/ML) 2ML VL IV SCH ×2 (09:14→22:00)
[2020-07-18] MEDS: DexAMETHasone SOD PHOS 10MG/1ML VIAL INJ IV SCH (09:14)
[2020-07-18] MEDS: SODIUM CHLOR 0.9% PF (SALINE LOCK) 10ML VIAL/SYR IV SCH ×2 (09:15→22:00)
[2020-07-18] MEDS: FUROSEMIDE 20 MG/2 ML VIAL IV SCH (09:15)
[2020-07-18] MEDS: POTASSIUM EFFERVESENT TAB 25 MEQ GT SCH (09:15)
[2020-07-18] MEDS: ASCORBIC ACID 1,000 MG TAB PO SCH (09:16)
[2020-07-18] MEDS: ZINC SULFATE 220mg CAP or TAB PO SCH (09:16)
[2020-07-18] MEDS: CHOLECALCIFEROL (VITD3) 2,000 UNIT CAP/TAB PO SCH (09:16)
[2020-07-18] MEDS: INSULIN LANTUS (GLARGINE) 1 /0.01ml (100units/ml) SC SCH (11:15)
[2020-07-18] MEDS: MIDAZOLAM DRIP 50 mg/50mL 50 ML IV SCH (14:30)
[2020-07-18] MEDS: fentaNYL Drip 2500mCg/250mlNS 250 ML IV SCH (14:45)
[2020-07-18] MEDS: NOREPINEPHRINE 8 MG/250ML KIT 250 ML IV SCH (18:30)
[2020-07-19] VITALS (46 sets, daily range): BP systolic 117–147; BP diastolic 52–110
[2020-07-19] MEDS: ACCU-CHEK COMFORT CURVE STRIP VI SCH ×6 (00:12→17:56)
[2020-07-19 04:20] LABS: Basophils # (auto) 0 10 ^3/uL (0-0.2); Basophils % (auto) 0.1 % (0.0-2.0); Eosinophils # (auto) 0.1 10 ^3/uL (0-0.8); Eosinophils % (auto) 0.6 % (0.0-7.0); Hematocrit 44.6 % (36.0-46.0); Hemoglobin 14.9 g/dL (12.2-16.2); Lymphocytes # (auto) 1.3 10 ^3/uL (0.4-5.4); Mean Corpuscular Hemoglobin 27.7 pg (28.0-32.0); Mean Corpuscular Hgb Conc. 33.5 g/dL (32.0-36.0); Mean Corpuscular Volume 82.8 fL (80.0-100.0); Neutrophils # (auto) 5.9 10 ^3/uL (1.6-8.6); Neutrophils % (auto) 71.3 % (37.0-80.0); Nucleated Red Blood Cells % 0.1 %; Platelet Count (auto) 180 10^3/uL (140-450); Red Blood Cells 5.38 10^6/uL (4.0-5.20); Red Cell Distribution Width 14.6 % (11.8-14.3); White Blood Cell 8.3 10^3/uL (4.4-10.8)
[2020-07-19 04:45] LABS: BUN/Creatinine Ratio 67.4; Potassium 3.3 mmol/L (3.5-5.1)
[2020-07-19] MEDS: InsuLIN REG 1unit/0.01ml Soln (100units/ml) SC SCH ×4 (05:56→17:56)
[2020-07-19] MEDS: DexAMETHasone SOD PHOS 10MG/1ML VIAL INJ IV SCH (09:47)
[2020-07-19] MEDS: ZINC SULFATE 220mg CAP or TAB PO SCH (09:47)
[2020-07-19] MEDS: ASCORBIC ACID 1,000 MG TAB PO SCH (09:47)
[2020-07-19] MEDS: FUROSEMIDE 20 MG/2 ML VIAL IV SCH (09:48)
[2020-07-19] MEDS: ENOXAPARIN SOD 80 MG/0.8ML SYRINGE SC SCH ×2 (09:48→21:51)
[2020-07-19] MEDS: FAMOTIDINE (10MG/ML) 2ML VL IV SCH ×2 (09:48→21:51)
[2020-07-19] MEDS: SODIUM CHLOR 0.9% PF (SALINE LOCK) 10ML VIAL/SYR IV SCH ×2 (09:48→21:51)
[2020-07-19] MEDS: CHOLECALCIFEROL (VITD3) 2,000 UNIT CAP/TAB PO SCH (09:48)
[2020-07-19] MEDS: POTASSIUM EFFERVESENT TAB 25 MEQ GT SCH (09:48)
[2020-07-19] MEDS: INSULIN LANTUS (GLARGINE) 1 /0.01ml (100units/ml) SC SCH (10:00)
[2020-07-19] MEDS: VANCOMYCIN 750mg/250ml 250 ML IV SCH (12:00)
[2020-07-19] MEDS: POTASSIUM CHL 20MEQ/100ML 100 ML IV SCH ×2 (12:15→13:57)
[2020-07-19] MEDS ORDERED: POTASSIUM CHL 20MEQ/100ML 200 ML IV ONE (12:20)
[2020-07-20] VITALS: BP 120/65
[2020-07-20] MEDS: ACCU-CHEK COMFORT CURVE STRIP VI SCH ×5 (00:13→23:50)
[2020-07-20] MEDS: InsuLIN REG 1unit/0.01ml Soln (100units/ml) SC SCH ×5 (00:14→23:45)
[2020-07-20] MEDS ORDERED: VANCOMYCIN 1GM/250ML 250 ML IV SCH (01:00)
[2020-07-20 05:59] LABS: Calcium 8.3 mg/dL (8.5-10.1); Potassium 3.9 mmol/L (3.5-5.1)
[2020-07-20 06:01] LABS: BUN/Creatinine Ratio 62.7
[2020-07-20 06:02] LABS: Basophils # (auto) 0 10 ^3/uL (0-0.2); Basophils % (auto) 0.3 % (0.0-2.0); Eosinophils # (auto) 0 10 ^3/uL (0-0.8); Eosinophils % (auto) 0.4 % (0.0-7.0); Hemoglobin 15.1 g/dL (12.2-16.2); Lymphocytes # (auto) 1.3 10 ^3/uL (0.4-5.4); Lymphocytes % (auto) 15.6 % (10.0-50.0); Mean Corpuscular Hgb Conc. 33.6 g/dL (32.0-36.0); Mean Corpuscular Volume 83.3 fL (80.0-100.0); Monocytes # (auto) 0.9 10 ^3/uL (0-1.3); Monocytes % (auto) 10.9 % (0.0-12.0); Neutrophils # (auto) 6.3 10 ^3/uL (1.6-8.6); Neutrophils % (auto) 72.8 % (37.0-80.0); Nucleated Red Blood Cells % 0.2 %; Platelet Count (auto) 202 10^3/uL (140-450); Red Cell Distribution Width 14.7 % (11.8-14.3); White Blood Cell 8.6 10^3/uL (4.4-10.8)
[2020-07-20 08:00] VITALS: BP 119/65
[2020-07-20] MEDS: POTASSIUM EFFERVESENT TAB 25 MEQ GT SCH (10:25)
[2020-07-20] MEDS: FAMOTIDINE (10MG/ML) 2ML VL IV SCH (10:26)
[2020-07-20] MEDS: ZINC SULFATE 220mg CAP or TAB PO SCH (10:26)
[2020-07-20] MEDS: CHOLECALCIFEROL (VITD3) 2,000 UNIT CAP/TAB PO SCH (10:26)
[2020-07-20] MEDS: DexAMETHasone SOD PHOS 10MG/1ML VIAL INJ IV SCH (10:26)
[2020-07-20] MEDS: FUROSEMIDE 20 MG/2 ML VIAL IV SCH (10:26)
[2020-07-20] MEDS: ASCORBIC ACID 1,000 MG TAB PO SCH (10:26)
[2020-07-20] MEDS: SODIUM CHLOR 0.9% PF (SALINE LOCK) 10ML VIAL/SYR IV SCH ×2 (10:27→22:04)
[2020-07-20] MEDS: ENOXAPARIN SOD 80 MG/0.8ML SYRINGE SC SCH (10:27)
[2020-07-20] MEDS: INSULIN LANTUS (GLARGINE) 1 /0.01ml (100units/ml) SC SCH (11:38)
[2020-07-20] MEDS: FAMOTIDINE 20 MG TAB PO SCH (22:04)
[2020-07-20] MEDS: ENOXAPARIN SOD 60 MG/0.6 ML SYRINGE SC SCH (22:05)
[2020-07-21] VITALS: BP 117/60
[2020-07-21] MEDS: InsuLIN REG 1unit/0.01ml Soln (100units/ml) SC SCH ×3 (06:00→17:05)
[2020-07-21] MEDS: ACCU-CHEK COMFORT CURVE STRIP VI SCH ×3 (06:13→17:00)
[2020-07-21 08:00] VITALS: BP 100/57
[2020-07-21] MEDS: FUROSEMIDE 20 MG/2 ML VIAL IV SCH (10:18)
[2020-07-21] MEDS: SODIUM CHLOR 0.9% PF (SALINE LOCK) 10ML VIAL/SYR IV SCH ×2 (10:19→21:34)
[2020-07-21] MEDS: FAMOTIDINE 20 MG TAB PO SCH ×2 (10:19→21:35)
[2020-07-21] MEDS: ZINC SULFATE 220mg CAP or TAB PO SCH (10:19)
[2020-07-21] MEDS: DexAMETHasone 4 MG TAB PO SCH (10:19)
[2020-07-21] MEDS: levoFLOXacin 500 MG TAB PO SCH (10:19)
[2020-07-21] MEDS: ASCORBIC ACID 1,000 MG TAB PO SCH (10:19)
[2020-07-21] MEDS: CHOLECALCIFEROL (VITD3) 2,000 UNIT CAP/TAB PO SCH (10:20)
[2020-07-21] MEDS: ENOXAPARIN SOD 60 MG/0.6 ML SYRINGE SC SCH (10:20)
[2020-07-21] MEDS: POTASSIUM EFFERVESENT TAB 25 MEQ GT SCH (10:56)
[2020-07-21] MEDS: INSULIN LANTUS (GLARGINE) 1 /0.01ml (100units/ml) SC SCH (10:57)
[2020-07-21 13:00] VITALS: BP 111/64
[2020-07-21 16:43] VITALS: BP 97/62
[2020-07-21] MEDS: ENOXAPARIN SOD 40 MG/0.4 ML SYRINGE SC SCH (21:35)
[2020-07-21 22:00] VITALS: BP 100/62
[2020-07-22] MEDS: InsuLIN REG 1unit/0.01ml Soln (100units/ml) SC SCH ×5 (00:30→16:57)
[2020-07-22] MEDS: ACCU-CHEK COMFORT CURVE STRIP VI SCH ×4 (00:30→16:34)
[2020-07-22 05:00] VITALS: BP 106/50
[2020-07-22 09:00] VITALS: BP 99/60
[2020-07-22] MEDS: ZINC SULFATE 220mg CAP or TAB PO SCH (09:11)
[2020-07-22] MEDS: DexAMETHasone 4 MG TAB PO SCH (09:12)
[2020-07-22] MEDS: levoFLOXacin 500 MG TAB PO SCH (09:13)
[2020-07-22] MEDS: FAMOTIDINE 20 MG TAB PO SCH ×2 (09:13→21:20)
[2020-07-22] MEDS: CHOLECALCIFEROL (VITD3) 2,000 UNIT CAP/TAB PO SCH (09:14)
[2020-07-22] MEDS: ASCORBIC ACID 500 MG TAB PO SCH (09:14)
[2020-07-22] MEDS: ENOXAPARIN SOD 40 MG/0.4 ML SYRINGE SC SCH (09:15)
[2020-07-22] MEDS: POTASSIUM EFFERVESENT TAB 25 MEQ PO SCH (09:21)
[2020-07-22] MEDS: SODIUM CHLOR 0.9% PF (SALINE LOCK) 10ML VIAL/SYR IV SCH ×2 (09:21→21:20)
[2020-07-22] MEDS: FUROSEMIDE 20 MG TAB PO SCH (10:00)
[2020-07-22] MEDS: INSULIN LANTUS (GLARGINE) 1 /0.01ml (100units/ml) SC SCH (11:59)
[2020-07-22 13:00] VITALS: BP 102/60
[2020-07-22 16:57] VITALS: BP 105/61
[2020-07-22 22:00] VITALS: BP 98/63
[2020-07-23] MEDS: ACCU-CHEK COMFORT CURVE STRIP VI SCH ×4 (00:09→17:48)
[2020-07-23 05:00] VITALS: BP 126/53
[2020-07-23] MEDS: InsuLIN REG 1unit/0.01ml Soln (100units/ml) SC SCH ×4 (06:30→17:49)
[2020-07-23 09:00] VITALS: BP 96/56
[2020-07-23] MEDS: POTASSIUM EFFERVESENT TAB 25 MEQ PO SCH (10:38)
[2020-07-23] MEDS: SODIUM CHLOR 0.9% PF (SALINE LOCK) 10ML VIAL/SYR IV SCH ×2 (10:38→21:35)
[2020-07-23] MEDS: ZINC SULFATE 220mg CAP or TAB PO SCH (10:38)
[2020-07-23] MEDS: DexAMETHasone 4 MG TAB PO SCH (10:38)
[2020-07-23] MEDS: FAMOTIDINE 20 MG TAB PO SCH ×2 (10:39→21:36)
[2020-07-23] MEDS: levoFLOXacin 500 MG TAB PO SCH (10:39)
[2020-07-23] MEDS: CHOLECALCIFEROL (VITD3) 2,000 UNIT CAP/TAB PO SCH (10:40)
[2020-07-23] MEDS: ENOXAPARIN SOD 40 MG/0.4 ML SYRINGE SC SCH (10:40)
[2020-07-23] MEDS: ASCORBIC ACID 500 MG TAB PO SCH (10:40)
[2020-07-23] MEDS: FUROSEMIDE 20 MG TAB PO SCH (10:57)
[2020-07-23] MEDS: INSULIN LANTUS (GLARGINE) 1 /0.01ml (100units/ml) SC SCH (11:18)
[2020-07-23 13:28] VITALS: BP 93/48
[2020-07-23 16:51] VITALS: BP 100/51
[2020-07-23 22:00] VITALS: BP 95/51
[2020-07-24] MEDS: ACCU-CHEK COMFORT CURVE STRIP VI SCH ×3 (00:30→12:12)
[2020-07-24] MEDS: InsuLIN REG 1unit/0.01ml Soln (100units/ml) SC SCH ×3 (00:30→12:00)
[2020-07-24 05:00] VITALS: BP 83/47
[2020-07-24 09:00] VITALS: BP 101/51
[2020-07-24] MEDS: INSULIN LANTUS (GLARGINE) 1 /0.01ml (100units/ml) SC SCH (10:00)
[2020-07-24] MEDS: FUROSEMIDE 20 MG TAB PO SCH (10:00)
[2020-07-24] MEDS: ASCORBIC ACID 500 MG TAB PO SCH (10:01)
[2020-07-24] MEDS: ZINC SULFATE 220mg CAP or TAB PO SCH (10:01)
[2020-07-24] MEDS: CHOLECALCIFEROL (VITD3) 2,000 UNIT CAP/TAB PO SCH (10:01)
[2020-07-24] MEDS: ENOXAPARIN SOD 40 MG/0.4 ML SYRINGE SC SCH (10:01)
[2020-07-24] MEDS: DexAMETHasone 4 MG TAB PO SCH (10:01)
[2020-07-24] MEDS: levoFLOXacin 500 MG TAB PO SCH (10:01)
[2020-07-24] MEDS: FAMOTIDINE 20 MG TAB PO SCH (10:02)
[2020-07-24] MEDS: POTASSIUM EFFERVESENT TAB 25 MEQ PO SCH (10:03)
[2020-07-24] MEDS: SODIUM CHLOR 0.9% PF (SALINE LOCK) 10ML VIAL/SYR IV SCH (10:03)
[2020-07-24 13:00] VITALS: BP 85/54
[2020-07-24 14:22] VITALS: BP 110/83
[2020-07-24 16:39] VITALS: BP 94/51
== END 2020-07-24 17:50 | disposition home health service (06) | DRG 871 ==
LOC: ER 22:51 → TELE 22:52 → TELE-WESTW 07-12 10:59 → ICU WEST 07-14 15:54 → TELE-WESTW 07-19 17:15
PROVIDERS: ADMIT Nurse Practitioner Family; ATTEND Internal Medicine
PROC: XW13325 Transfusion of Convalescent Plasma (Nonautologous) into Peripheral Vein, Percutaneous Approach, New Technology Group 5 (ICD-10-PCS; principal; 2020-07-12)
PROC: 5A1945Z Respiratory Ventilation, 24-96 Consecutive Hours (ICD-10-PCS; 2020-07-12)
PROC: XW033E5 Introduction of Remdesivir Anti-infective into Peripheral Vein, Percutaneous Approach, New Technology Group 5 (ICD-10-PCS; 2020-07-12)
PROC: XW033H5 Introduction of Tocilizumab into Peripheral Vein, Percutaneous Approach, New Technology Group 5 (ICD-10-PCS; 2020-07-13)
PROC: 0BH17EZ Insertion of Endotracheal Airway into Trachea, Via Natural or Artificial Opening (ICD-10-PCS; 2020-07-14)
DX: A41.89 Other specified sepsis (principal); U07.1 COVID-19; J12.82 Pneumonia due to coronavirus disease 2019; I21.4 Non-ST elevation (NSTEMI) myocardial infarction; J96.01 Acute respiratory failure with hypoxia; N17.9 Acute kidney failure, unspecified; E87.1 Hypo-osmolality and hyponatremia; D68.59 Other primary thrombophilia; I13.0 Hypertensive heart and chronic kidney disease with heart failure and stage 1 through stage 4 chronic kidney disease, or unspecified chronic kidney disease; I48.91 Unspecified atrial fibrillation; E11.65 Type 2 diabetes mellitus with hyperglycemia; I50.9 Heart failure, unspecified; N18.9 Chronic kidney disease, unspecified; E87.5 Hyperkalemia; E11.21 Type 2 diabetes mellitus with diabetic nephropathy; E66.9 Obesity, unspecified; E11.22 Type 2 diabetes mellitus with diabetic chronic kidney disease; M19.90 Unspecified osteoarthritis, unspecified site; I95.9 Hypotension, unspecified; Z79.899 Other long term (current) drug therapy; Z79.891 Long term (current) use of opiate analgesic; Z79.4 Long term (current) use of insulin; Z79.01 Long term (current) use of anticoagulants; Z68.35 Body mass index [BMI] 35.0-35.9, adult
CPT/HCPCS: 36415; 36569; 36600; 71045; 80048; 80053; 80202; 81001; 82306; 82728; 82805; 82962; 83036; 83605; 83615; 83735; 83880; 84484; 85025; 85379; 85610; 85730; 86141; 86850; 86900; 86901; 87040; 87070; 87077; 87081; 87186; 87205; 87426; 93005; 94003; 94640; 96365; 96366; 96368; 96375; 97110; 97530; G0378; J0330; J0696; J1100; J1815; J1956; J2704; J3480; J3490

== ENCOUNTER 2020-08-04 15:44 | Inpatient (IN) | payer MEDICARE ==
[~2020-08-04] VITALS: Ht 152.4 cm; Wt 83.0 kg
[~2020-08-04 15:44] MED LIST changes: +APIX5TAB PO; +DAPA1TAB4 PO; -DICY10CA12 PO; +DICY20TA10 PO
[2020-08-04] MEDS ORDERED: SODIUM CHLORIDE 0.9% 1,000 ML IV ONE (16:00)
[2020-08-04 16:51] LABS: Basophils # (auto) 0 10 ^3/uL (0-0.2); Basophils % (auto) 1.1 % (0.0-2.0); Eosinophils # (auto) 0.1 10 ^3/uL (0-0.8); Eosinophils % (auto) 2.8 % (0.0-7.0); Hemoglobin 12.4 g/dL (12.2-16.2); Lymphocytes # (auto) 1.2 10 ^3/uL (0.4-5.4); Mean Corpuscular Hemoglobin 28.7 pg (28.0-32.0); Mean Corpuscular Hgb Conc. 32.7 g/dL (32.0-36.0); Mean Corpuscular Volume 87.8 fL (80.0-100.0); Monocytes # (auto) 0.3 10 ^3/uL (0-1.3); Monocytes % (auto) 7.7 % (0.0-12.0); Neutrophils # (auto) 2.7 10 ^3/uL (1.6-8.6); Neutrophils % (auto) 61.4 % (37.0-80.0); Nucleated Red Blood Cells % 0.1 %; Platelet Count (auto) 91 10^3/uL (140-450); Red Blood Cells 4.33 10^6/uL (4.0-5.20); Red Cell Distribution Width 19.9 % (11.8-14.3); White Blood Cell 4.4 10^3/uL (4.4-10.8)
[2020-08-04 17:09] LABS: Albumin 2.8 g/dL (3.4-5.0); Anion Gap 7 (5-15); Blood Urea Nitrogen 13 mg/dL (7-18); Calcium 8.3 mg/dL (8.5-10.1); Carbon Dioxide 25 mmol/L (21-32); Chloride 110 mmol/L (98-107); Glucose 123 mg/dL (74-106); Potassium 4.2 mmol/L (3.5-5.1); Sodium 142 mmol/L (136-145)
[2020-08-04 17:14] LABS: Alanine Aminotransferase 34 U/L (13-56); Alkaline Phosphatase 37 U/L (45-117); Aspartate Aminotransferase 21 U/L (15-37); BUN/Creatinine Ratio 20.6; GFR African American 119 mL/min; GFR Non-African American 99 mL/min; Total Protein 5.2 g/dL (6.4-8.2)
[2020-08-04] MEDS ORDERED: cefTRIAXone 1GM/50ML D5W 50 ML IV ONE (17:30)
[2020-08-04] MEDS ORDERED: NITROGLYCERIN 0.4 MG SL TAB SL PRN ×2 (18:45→20:00)
[2020-08-04] MEDS ORDERED: MORPHINE SULF INJ 2 MG/ML SYRINGE 1ML IV PRN ×3 (18:45→20:00)
[2020-08-04] MEDS ORDERED: FAMO-12 PO (18:48)
[2020-08-04] MEDS ORDERED: ENAL20TA8 PO (18:51)
[2020-08-04] MEDS ORDERED: ASCO500T11 PO (18:52)
[2020-08-04] MEDS ORDERED: CHOL20007 PO (18:52)
[2020-08-04 18:57] LABS: Urine Amorphous Crystal MOD /hpf (None Seen); Urine Bacteria FEW /hpf (None Seen); Urine Blood Negative /uL (Negative); Urine Specific Gravity 1.007 (1.001-1.035); Urine WBC 25 /hpf (0 - 5); Urine WBC Clumps PRESENT /hpf (None Seen)
[2020-08-04] MEDS ORDERED: LOPE2CAP14 PO (18:57)
[2020-08-04] MEDS ORDERED: ZINC220C10 PO (19:03)
[2020-08-04] MEDS ORDERED: INSLANTI SC (19:03)
[2020-08-04] MEDS ORDERED: ACETAMINOPHEN 325 MG TAB PO PRN (20:00)
[2020-08-04] MEDS ORDERED: ALUM & MAG HYDROX-SIMETH LIQ(MAALOX) 30 ML PO PRN (20:00)
[2020-08-04] MEDS ORDERED: LORazepam 0.5 MG TAB PO PRN (20:00)
[2020-08-04] MEDS ORDERED: HYDROcodone-ACET 5/325MG TAB PO PRN (20:00)
[2020-08-04] MEDS ORDERED: DOCUSATE SOD 100 MG CAP PO PRN (20:00)
[2020-08-04] MEDS ORDERED: ONDANSETRON HCL 4 MG/2 ML VIAL IV PRN (20:00)
[2020-08-04] MEDS ORDERED: FUROSEMIDE 20 MG/2 ML VIAL IV ONE (20:15)
[2020-08-04] MEDS ORDERED: DEXTROSE (50%) 50ML SYRG IV PRN (20:15)
[2020-08-04] MEDS: ALBUMIN 25% 100 ML IV SCH (21:00)
[2020-08-04] MEDS: SODIUM CHLOR 0.9% PF (SALINE LOCK) 10ML VIAL/SYR IV SCH (22:00)
[2020-08-04] MEDS: FAMOTIDINE (10MG/ML) 2ML VL IV SCH (22:00)
[2020-08-04] MEDS: InsuLIN REG 1unit/0.01ml Soln (100units/ml) SC SCH (22:00)
[2020-08-04] MEDS: ACCU-CHEK COMFORT CURVE STRIP VI SCH (22:00)
[2020-08-04] MEDS ORDERED: INSULIN LANTUS (GLARGINE) 1 /0.01ml (100units/ml) SC SCH (22:00)
[2020-08-04] MEDS: APIXABAN 5 MG TAB PO SCH (22:00)
[2020-08-04 23:05] LABS: Cholesterol 119 mg/dL (< 200); HDL Cholesterol 45 mg/dL (40-59); LDL Cholesterol 72 mg/dL (< 100); Triglycerides 90 mg/dL (< 150)
[2020-08-05 00:15] LABS: Amphetamine Screen, Urine NEGATIVE (NEGATIVE); Barbiturate Scree,Urine NEGATIVE (NEGATIVE); Benzodiazephine Screen, Urine NEGATIVE (NEGATIVE); Cannabinoid Screen, Urine NEGATIVE (NEGATIVE); Cocaine Screen, Urine NEGATIVE (NEGATIVE); Opiate Scree,Urine NEGATIVE (NEGATIVE); Phencyclidine Screen, Urine NEGATIVE (NEGATIVE)
[2020-08-05] MEDS ORDERED: ALBUMIN 25% 100 ML IV ONE (01:19)
[2020-08-05] MEDS: ALBUMIN 25% 100 ML IV SCH (01:26)
[2020-08-05 03:53] VITALS: BP 119/62
[2020-08-05 05:00] VITALS: BP 119/62
[2020-08-05] MEDS ORDERED: METF-370 PO (05:06)
[2020-08-05] MEDS: ACCU-CHEK COMFORT CURVE STRIP VI SCH ×6 (06:02→22:08)
[2020-08-05] MEDS: SODIUM CHLOR 0.9% PF (SALINE LOCK) 10ML VIAL/SYR IV SCH ×3 (06:03→21:59)
[2020-08-05] MEDS: InsuLIN REG 1unit/0.01ml Soln (100units/ml) SC SCH ×5 (06:03→22:00)
[2020-08-05 08:50] VITALS: BP 131/65
[2020-08-05] MEDS: FAMOTIDINE (10MG/ML) 2ML VL IV SCH (09:36)
[2020-08-05] MEDS: CHOLECALCIFEROL (VITD3) 2,000 UNIT CAP/TAB PO SCH (09:36)
[2020-08-05] MEDS: APIXABAN 5 MG TAB PO SCH ×2 (09:36→21:59)
[2020-08-05] MEDS ORDERED: FUROSEMIDE 20 MG/2 ML VIAL IV SCH (10:00)
[2020-08-05] MEDS ORDERED: LISINOPRIL 5 MG TAB PO SCH (10:00)
[2020-08-05] MEDS: CEFTRIAXONE SODIUM 2 GM in D5W 5% 50 ML IV SCH (10:58)
[2020-08-05] MEDS ORDERED: LOPERAMIDE HCL 2 MG CAP PO PRN (11:30)
[2020-08-05] MEDS ORDERED: DEXTROSE (50%) 50ML SYRG IV PRN (12:45)
[2020-08-05 13:44] VITALS: BP 103/58
[2020-08-05 16:16] VITALS: BP 91/45
[2020-08-05 22:00] VITALS: BP 102/49
[2020-08-05] MEDS: INSULIN LANTUS (GLARGINE) 1 /0.01ml (100units/ml) SC SCH (22:00)
[2020-08-06 05:00] VITALS: BP 109/67
[2020-08-06 05:38] LABS: Basophils # (auto) 0 10 ^3/uL (0-0.2); Basophils % (auto) 0.7 % (0.0-2.0); Eosinophils # (auto) 0.1 10 ^3/uL (0-0.8); Eosinophils % (auto) 3.4 % (0.0-7.0); Hematocrit 32.2 % (36.0-46.0); Lymphocytes # (auto) 1.2 10 ^3/uL (0.4-5.4); Lymphocytes % (auto) 35.1 % (10.0-50.0); Mean Corpuscular Hemoglobin 29.6 pg (28.0-32.0); Mean Corpuscular Volume 87.1 fL (80.0-100.0); Monocytes # (auto) 0.3 10 ^3/uL (0-1.3); Monocytes % (auto) 9.4 % (0.0-12.0); Neutrophils # (auto) 1.8 10 ^3/uL (1.6-8.6); Neutrophils % (auto) 51.4 % (37.0-80.0); Nucleated Red Blood Cells % 0.1 %; Platelet Count (auto) 83 10^3/uL (140-450); White Blood Cell 3.4 10^3/uL (4.4-10.8)
[2020-08-06 05:50] LABS: Calcium 8.4 mg/dL (8.5-10.1); Potassium 3.7 mmol/L (3.5-5.1)
[2020-08-06 05:54] LABS: BUN/Creatinine Ratio 43.9; Red Cell Distribution Width 20.5 % (11.8-14.3)
[2020-08-06] MEDS: SODIUM CHLOR 0.9% PF (SALINE LOCK) 10ML VIAL/SYR IV SCH ×3 (06:14→21:59)
[2020-08-06] MEDS: ACCU-CHEK COMFORT CURVE STRIP VI SCH ×8 (06:14→21:58)
[2020-08-06] MEDS: InsuLIN REG 1unit/0.01ml Soln (100units/ml) SC SCH ×5 (06:15→21:58)
[2020-08-06 08:30] VITALS: BP 98/50
[2020-08-06] MEDS: CHOLECALCIFEROL (VITD3) 2,000 UNIT CAP/TAB PO SCH (09:57)
[2020-08-06] MEDS: APIXABAN 5 MG TAB PO SCH ×2 (09:57→21:43)
[2020-08-06] MEDS: FAMOTIDINE 20 MG TAB PO SCH (09:57)
[2020-08-06] MEDS: CEFTRIAXONE SODIUM 2 GM in D5W 5% 50 ML IV SCH (11:28)
[2020-08-06 13:06] VITALS: BP 118/60
[2020-08-06 16:44] VITALS: BP 122/60
[2020-08-06] MEDS: INSULIN LANTUS (GLARGINE) 1 /0.01ml (100units/ml) SC SCH (21:47)
[2020-08-06 22:02] VITALS: BP 110/58
[2020-08-07 05:15] VITALS: BP 128/67
[2020-08-07] MEDS: SODIUM CHLOR 0.9% PF (SALINE LOCK) 10ML VIAL/SYR IV SCH (06:12)
[2020-08-07] MEDS: InsuLIN REG 1unit/0.01ml Soln (100units/ml) SC SCH ×2 (06:23→11:21)
[2020-08-07] MEDS: ACCU-CHEK COMFORT CURVE STRIP VI SCH ×4 (06:23→11:22)
[2020-08-07 08:31] VITALS: BP 125/65
[2020-08-07] MEDS: CEFTRIAXONE SODIUM 2 GM in D5W 5% 50 ML IV SCH (09:37)
[2020-08-07] MEDS: APIXABAN 5 MG TAB PO SCH (09:37)
[2020-08-07] MEDS: CHOLECALCIFEROL (VITD3) 2,000 UNIT CAP/TAB PO SCH (09:37)
[2020-08-07] MEDS: FAMOTIDINE 20 MG TAB PO SCH (09:37)
[2020-08-07 13:08] VITALS: BP 109/59
[2020-08-07 13:20] VITALS: BP 142/63
[2020-08-07 13:24] VITALS: BP 142/63
== END 2020-08-07 15:10 | disposition home or self-care (01) | DRG 314 ==
LOC: ER 15:44 → TELE 18:40 → TELE-WESTW 08-05 03:53
PROVIDERS: ADMIT Hospitalist; ATTEND Internal Medicine
DX: I95.9 Hypotension, unspecified (principal); U07.1 COVID-19; J12.82 Pneumonia due to coronavirus disease 2019; N39.0 Urinary tract infection, site not specified; D68.4 Acquired coagulation factor deficiency; J96.10 Chronic respiratory failure, unspecified whether with hypoxia or hypercapnia; I82.509 Chronic embolism and thrombosis of unspecified deep veins of unspecified lower extremity; D68.69 Other thrombophilia; I27.20 Pulmonary hypertension, unspecified; Z79.4 Long term (current) use of insulin; I10 Essential (primary) hypertension; E78.5 Hyperlipidemia, unspecified; E66.01 Morbid (severe) obesity due to excess calories; D69.6 Thrombocytopenia, unspecified; Z79.01 Long term (current) use of anticoagulants; I48.0 Paroxysmal atrial fibrillation; E11.9 Type 2 diabetes mellitus without complications; Z87.01 Personal history of pneumonia (recurrent); Z68.35 Body mass index [BMI] 35.0-35.9, adult
CPT/HCPCS: 36415; 71045; 76705; 80048; 80053; 80061; 80307; 81001; 82962; 84484; 85025; 87040; 87081; 87086; 87088; 87426; 96365; 96375; G0378; J0696; J1815; J3490; J7060; P9047

== ENCOUNTER → 2020-10-23 | Outpatient (CLI) | payer MEDICARE ==
[~2020-10-23] MED LIST changes: +ASCO500T11 PO; +CHOL20007 PO; -DICY20TA10 PO; -ENAL2.5T7 PO; +ENAL20TA8 PO; +FAMO-12 PO; +GABA300C10 PO; -LEVO500T31 PO; +LOPE2CAP PO; +LOPE2CAP15 PO; +MELO1TAB56 PO; +METF-370 PO; -METF-372 PO; +METH750T22 PO; -METO10TA3 PO; +RIV20T PO
== END | disposition home or self-care (01) ==
LOC: Rad HDHVI 13:05
PROVIDERS: ATTEND Internal Medicine
DX: I10 Essential (primary) hypertension (principal); I95.9 Hypotension, unspecified
CPT/HCPCS: 93925

== ENCOUNTER 2020-12-17 06:01 | Inpatient (IN) | payer MEDICARE ==
[~2020-12-17] VITALS: Ht 152.4 cm; Wt 80.5 kg
[~2020-12-17 06:01] MED LIST changes: -GABA300C10 PO; -LOPE2CAP PO; -MELO1TAB56 PO; -METH750T22 PO; -RIV20T PO
[2020-12-17 08:45] LABS: Hematocrit 37.6 % (36.0-46.0); Hemoglobin 13.5 g/dL (12.2-16.2); Mean Corpuscular Hemoglobin 29.3 pg (28.0-32.0); Mean Corpuscular Volume 81.4 fL (80.0-100.0); Red Blood Cells 4.62 10^6/uL (4.0-5.20); Red Cell Distribution Width 14.7 % (11.8-14.3); White Blood Cell 8.3 10^3/uL (4.4-10.8)
[2020-12-17 08:48] LABS: Basophils % (manual) 0 (0.0-2.0); Blast Cells 0; Eosinophils % (manual) 0 (0-7); Metamyelocytes % 0; Myelocytes % 0; Promyelocytes % 0; Reactive Lymphocytes 0
[2020-12-17 09:04] LABS: Albumin 2.8 g/dL (3.4-5.0); Anion Gap 10 (5-15); Blood Urea Nitrogen 28 mg/dL (7-18); Calcium 8.6 mg/dL (8.5-10.1); Carbon Dioxide 24 mmol/L (21-32); Chloride 98 mmol/L (98-107); Glucose 322 mg/dL (74-106); Potassium 5.3 mmol/L (3.5-5.1); Sodium 132 mmol/L (136-145)
[2020-12-17 09:06] LABS: Alanine Aminotransferase 19 U/L (13-56); Aspartate Aminotransferase 32 U/L (15-37); BUN/Creatinine Ratio 29.2; GFR African American 73 mL/min; GFR Non-African American 61 mL/min
[2020-12-17 09:10] LABS: Alkaline Phosphatase 60 U/L (45-117); Bilirubin, Total 1.2 mg/dL (0.2-1.0); Total Protein 7.2 g/dL (6.4-8.2)
[2020-12-17] MEDS ORDERED: CALCIUM CHL 100MG/ML 500 MG in D5W 5% 100 ML IV ONE (09:30)
[2020-12-17] MEDS ORDERED: FUROSEMIDE 20 MG/2 ML VIAL IV ONE (09:30)
[2020-12-17] MEDS ORDERED: ALBUTEROL SULF 2.5 MG/0.5ML(0.5%) NEB SOLN NEB ONE (09:30)
[2020-12-17] MEDS ORDERED: InsuLIN REG 1unit/0.01ml Soln (100units/ml) IV ONE (09:30)
[2020-12-17] MEDS ORDERED: SODIUM ZIRCONIUM CYCL 10 GM PAK PO ONE (09:30)
[2020-12-17] MEDS ORDERED: DEXTROSE (50%) 50ML SYRG IV ONE (09:30)
[2020-12-17 09:40] LABS: Band Neutrophils % (manual) 16; Lymphocytes % (manual) 17 (10.0-50.0); Monocytes % (manual) 12 (0-12)
[2020-12-17] MEDS ORDERED: ACETAMINOPHEN 325 MG TAB PO ONE (11:00)
[2020-12-17] MEDS ORDERED: cefTRIAXone 1GM/50ML D5W 50 ML IV ONE (11:00)
[2020-12-17] MEDS ORDERED: MORPHINE SULF INJ 2 MG/ML SYRINGE 1ML IV PRN (11:15)
[2020-12-17] MEDS ORDERED: SODIUM CHLORIDE 0.9% 500 ML IV ONE (11:15)
[2020-12-17] MEDS ORDERED: NITROGLYCERIN 0.4 MG SL TAB SL PRN (11:15)
[2020-12-17] MEDS ORDERED: FAMOTIDINE (10MG/ML) 2ML VL IV SCH (11:30)
[2020-12-17] MEDS ORDERED: LACTULOSE 20Gm/30ML SOLN PO PRN (11:30)
[2020-12-17] MEDS ORDERED: ONDANSETRON HCL 4 MG/2 ML VIAL IV PRN (11:30)
[2020-12-17] MEDS ORDERED: DEXTROSE (50%) 50ML SYRG IV PRN (11:30)
[2020-12-17 12:05] LABS: Urine Bacteria MOD /hpf (None Seen); Urine Blood 2+ /uL (Negative); Urine Specific Gravity 1.016 (1.001-1.035); Urine WBC 54 /hpf (0 - 5)
[2020-12-17] MEDS: SODIUM CHLORIDE 0.9% 1,000 ML IV SCH ×2 (13:36→21:30)
[2020-12-17] MEDS: ACCU-CHEK COMFORT CURVE STRIP VI SCH ×3 (13:37→21:30)
[2020-12-17] MEDS: InsuLIN REG 1unit/0.01ml Soln (100units/ml) SC SCH ×3 (13:39→21:30)
[2020-12-17 14:07] LABS: Free T3 1.96 pg/mL (2.3-4.2); Free T4 (Free Thyroxine) 1.38 ng/dL (0.89-1.76)
[2020-12-17 14:52] LABS: Potassium 3.5 mmol/L (3.5-5.1)
[2020-12-17 17:18] VITALS: BP 133/72
[2020-12-17 20:00] VITALS: BP 139/104
[2020-12-17 22:00] VITALS: BP 139/104
[2020-12-17] MEDS: APIXABAN 5 MG TAB PO SCH (22:00)
[2020-12-17] MEDS: CHOLECALCIFEROL (VITD3) 2,000 UNIT CAP/TAB PO SCH (22:00)
[2020-12-17] MEDS: ATORVASTATIN 20 MG TAB PO SCH (22:00)
[2020-12-18] MEDS: ACETAMINOPHEN 500 MG TAB PO PRN ×3 (00:46→12:50)
[2020-12-18] MEDS: InsuLIN REG 1unit/0.01ml Soln (100units/ml) SC SCH ×6 (04:18→22:32)
[2020-12-18] MEDS: ACCU-CHEK COMFORT CURVE STRIP VI SCH ×6 (04:18→22:32)
[2020-12-18 05:00] VITALS: BP 91/68
[2020-12-18] MEDS ORDERED: LOPE2CAP PO (06:12)
[2020-12-18] MEDS ORDERED: GABA300C10 PO (06:18)
[2020-12-18] MEDS ORDERED: MELO1TAB56 PO (06:18)
[2020-12-18] MEDS ORDERED: METF-370 PO (06:18)
[2020-12-18] MEDS ORDERED: RIV20T PO (06:18)
[2020-12-18] MEDS ORDERED: METH750T22 PO (06:18)
[2020-12-18 06:56] LABS: Albumin 2.6 g/dL (3.4-5.0); BUN/Creatinine Ratio 37.7; Bilirubin, Total 1.2 mg/dL (0.2-1.0); Calcium 8.7 mg/dL (8.5-10.1)
[2020-12-18] MEDS: SODIUM CHLORIDE 0.9% 1,000 ML IV SCH ×2 (07:30→17:30)
[2020-12-18] MEDS: ENALAPRIL MALEATE 10 MG TAB PO SCH (08:43)
[2020-12-18] MEDS: FAMOTIDINE 20 MG TAB PO SCH (08:43)
[2020-12-18] MEDS: DAPAGLIFLOZIN 5 MG TAB PO SCH (08:43)
[2020-12-18] MEDS: CHOLECALCIFEROL (VITD3) 2,000 UNIT CAP/TAB PO SCH ×2 (08:44→22:31)
[2020-12-18] MEDS: ASCORBIC ACID 500 MG TAB PO SCH (08:44)
[2020-12-18 09:00] VITALS: BP 146/71
[2020-12-18] MEDS ORDERED: cefTRIAXone 1GM/50ML D5W 50 ML IV SCH (09:00)
[2020-12-18] MEDS ORDERED: ENOXAPARIN SOD 40 MG/0.4 ML SYRINGE SC SCH (10:00)
[2020-12-18] MEDS ORDERED: ASPirin 81 mg TAB PO SCH ×2 (10:00)
[2020-12-18] MEDS: APIXABAN 5 MG TAB PO SCH (10:00)
[2020-12-18 13:00] VITALS: BP 140/84
[2020-12-18] MEDS ORDERED: DEXTROSE (50%) 50ML SYRG IV PRN (15:45)
[2020-12-18] MEDS ORDERED: PIPERACILLIN-TAZOB 3.375GM 100 ML IV ONE (16:00)
[2020-12-18] MEDS: ACETAMINOPHEN 325 MG TAB PO PRN (16:24)
[2020-12-18 17:00] VITALS: BP 157/74
[2020-12-18 22:00] VITALS: BP 154/78
[2020-12-18] MEDS: ATORVASTATIN 20 MG TAB PO SCH (22:30)
[2020-12-19] MEDS: PIPERACILLIN-TAZOB 3.375GM 100 ML IV SCH ×3 (01:22→11:54)
[2020-12-19] MEDS: SODIUM CHLORIDE 0.9% 1,000 ML IV SCH ×3 (04:30→23:34)
[2020-12-19 05:02] VITALS: BP 135/68
[2020-12-19] MEDS: InsuLIN REG 1unit/0.01ml Soln (100units/ml) SC SCH ×4 (06:36→21:34)
[2020-12-19] MEDS: ACCU-CHEK COMFORT CURVE STRIP VI SCH ×4 (06:36→21:26)
[2020-12-19 06:58] LABS: Basophils # (auto) 0 10 ^3/uL (0-0.2); Basophils % (auto) 0.2 % (0.0-2.0); Eosinophils # (auto) 0 10 ^3/uL (0-0.8); Hematocrit 36.6 % (36.0-46.0); Hemoglobin 12.8 g/dL (12.2-16.2); Lymphocytes # (auto) 0.6 10 ^3/uL (0.4-5.4); Lymphocytes % (auto) 6.4 % (10.0-50.0); Mean Corpuscular Hemoglobin 28.1 pg (28.0-32.0); Mean Corpuscular Volume 80.2 fL (80.0-100.0); Monocytes # (auto) 0.6 10 ^3/uL (0-1.3); Monocytes % (auto) 6.2 % (0.0-12.0); Neutrophils # (auto) 7.9 10 ^3/uL (1.6-8.6); Neutrophils % (auto) 87.2 % (37.0-80.0); Red Blood Cells 4.56 10^6/uL (4.0-5.20); Red Cell Distribution Width 14.5 % (11.8-14.3)
[2020-12-19 07:25] LABS: Albumin 2.4 g/dL (3.4-5.0); Calcium 8.8 mg/dL (8.5-10.1); Potassium 3.6 mmol/L (3.5-5.1)
[2020-12-19 07:29] LABS: BUN/Creatinine Ratio 28.3; Bilirubin, Total 1.2 mg/dL (0.2-1.0); Total Protein 6.7 g/dL (6.4-8.2)
[2020-12-19 08:00] VITALS: BP 125/61
[2020-12-19 09:00] VITALS: BP 125/61
[2020-12-19] MEDS: RIVAROXABAN 20 MG TAB PO SCH (10:00)
[2020-12-19] MEDS: DAPAGLIFLOZIN 5 MG TAB PO SCH (10:00)
[2020-12-19] MEDS: ENALAPRIL MALEATE 10 MG TAB PO SCH (10:00)
[2020-12-19] MEDS: CHOLECALCIFEROL (VITD3) 2,000 UNIT CAP/TAB PO SCH ×2 (10:00→21:25)
[2020-12-19] MEDS: ASCORBIC ACID 500 MG TAB PO SCH (10:00)
[2020-12-19] MEDS: FAMOTIDINE 20 MG TAB PO SCH (10:00)
[2020-12-19 12:45] VITALS: BP 118/59
[2020-12-19] MEDS ORDERED: ERTAPENEM SOD INJ 1 GM in SODIUM CHL 0.9% 50 ML IV ONE (13:15)
[2020-12-19] MEDS: ACETAMINOPHEN 325 MG TAB PO PRN ×2 (15:25→21:25)
[2020-12-19 17:00] VITALS: BP 137/64
[2020-12-19] MEDS: ATORVASTATIN 20 MG TAB PO SCH (21:25)
[2020-12-19 22:00] VITALS: BP 144/57
[2020-12-20 05:00] VITALS: BP 146/74
[2020-12-20] MEDS: ACCU-CHEK COMFORT CURVE STRIP VI SCH ×4 (06:23→22:09)
[2020-12-20] MEDS: InsuLIN REG 1unit/0.01ml Soln (100units/ml) SC SCH ×4 (06:33→22:09)
[2020-12-20 09:00] VITALS: BP 151/71
[2020-12-20] MEDS: SODIUM CHLORIDE 0.9% 1,000 ML IV SCH ×2 (09:30→21:05)
[2020-12-20] MEDS: FAMOTIDINE 20 MG TAB PO SCH (11:08)
[2020-12-20] MEDS: DAPAGLIFLOZIN 5 MG TAB PO SCH (11:08)
[2020-12-20] MEDS: CHOLECALCIFEROL (VITD3) 2,000 UNIT CAP/TAB PO SCH ×2 (11:09→22:10)
[2020-12-20] MEDS: ASCORBIC ACID 500 MG TAB PO SCH (11:09)
[2020-12-20] MEDS: RIVAROXABAN 20 MG TAB PO SCH (11:09)
[2020-12-20] MEDS: ENALAPRIL MALEATE 10 MG TAB PO SCH (11:09)
[2020-12-20] MEDS: ERTAPENEM SOD INJ 1 GM in SODIUM CHL 0.9% 50 ML IV SCH (11:13)
[2020-12-20 13:00] VITALS: BP 155/73
[2020-12-20] MEDS: traMADol HCL 50 MG TAB PO PRN ×2 (14:26→20:57)
[2020-12-20 17:00] VITALS: BP 154/69
[2020-12-20 22:00] VITALS: BP 152/70
[2020-12-20] MEDS: ATORVASTATIN 20 MG TAB PO SCH (22:09)
[2020-12-21 05:00] VITALS: BP 137/74
[2020-12-21] MEDS: SODIUM CHLORIDE 0.9% 1,000 ML IV SCH ×4 (05:28→22:44)
[2020-12-21] MEDS: ACCU-CHEK COMFORT CURVE STRIP VI SCH ×4 (05:29→21:43)
[2020-12-21] MEDS: InsuLIN REG 1unit/0.01ml Soln (100units/ml) SC SCH ×4 (05:29→21:43)
[2020-12-21 08:00] VITALS: BP 159/75
[2020-12-21] MEDS: ENALAPRIL MALEATE 10 MG TAB PO SCH (08:08)
[2020-12-21] MEDS: FAMOTIDINE 20 MG TAB PO SCH (08:08)
[2020-12-21] MEDS: DAPAGLIFLOZIN 5 MG TAB PO SCH (08:08)
[2020-12-21] MEDS: CHOLECALCIFEROL (VITD3) 2,000 UNIT CAP/TAB PO SCH ×2 (08:09→21:43)
[2020-12-21] MEDS: RIVAROXABAN 20 MG TAB PO SCH (08:09)
[2020-12-21] MEDS: ASCORBIC ACID 500 MG TAB PO SCH (08:09)
[2020-12-21] MEDS: ERTAPENEM SOD INJ 1 GM in SODIUM CHL 0.9% 50 ML IV SCH (09:55)
[2020-12-21 12:00] VITALS: BP 148/89
[2020-12-21 16:00] VITALS: BP 159/72
[2020-12-21] MEDS: traMADol HCL 50 MG TAB PO PRN (20:15)
[2020-12-21] MEDS: ATORVASTATIN 20 MG TAB PO SCH (21:43)
[2020-12-21 22:00] VITALS: BP 159/79
[2020-12-22 05:28] VITALS: BP 163/85
[2020-12-22] MEDS: LABETALOL HCL 5 MG/ML ML 20ML VIAL IV PRN ×2 (05:40→12:37)
[2020-12-22] MEDS: ACCU-CHEK COMFORT CURVE STRIP VI SCH ×2 (05:48→11:37)
[2020-12-22] MEDS: InsuLIN REG 1unit/0.01ml Soln (100units/ml) SC SCH ×2 (05:48→11:37)
[2020-12-22 08:34] VITALS: BP 156/75
[2020-12-22] MEDS: RIVAROXABAN 20 MG TAB PO SCH (09:22)
[2020-12-22] MEDS: CHOLECALCIFEROL (VITD3) 2,000 UNIT CAP/TAB PO SCH (09:22)
[2020-12-22] MEDS: ENALAPRIL MALEATE 10 MG TAB PO SCH (09:23)
[2020-12-22] MEDS: DAPAGLIFLOZIN 5 MG TAB PO SCH (09:23)
[2020-12-22] MEDS: ASCORBIC ACID 500 MG TAB PO SCH (09:23)
[2020-12-22] MEDS: ERTAPENEM SOD INJ 1 GM in SODIUM CHL 0.9% 50 ML IV SCH (09:24)
[2020-12-22 12:42] VITALS: BP 167/70
[2020-12-22 15:31] VITALS: BP 167/70
== END 2020-12-22 16:55 | DRG 871 ==
LOC: ER 06:01 → TELE 11:07 → TELE-EAST 17:18 → TELE-CENTR 12-20 19:30
PROVIDERS: ADMIT Internal Medicine; ATTEND Internal Medicine
PROC: 05HA33Z Insertion of Infusion Device into Left Brachial Vein, Percutaneous Approach (ICD-10-PCS; principal; 2020-12-20)
PROC: B54NZZA Ultrasonography of Left Upper Extremity Veins, Guidance (ICD-10-PCS; 2020-12-20)
DX: A41.9 Sepsis, unspecified organism (principal); J18.9 Pneumonia, unspecified organism; I50.43 Acute on chronic combined systolic (congestive) and diastolic (congestive) heart failure; N39.0 Urinary tract infection, site not specified; E87.1 Hypo-osmolality and hyponatremia; E44.0 Moderate protein-calorie malnutrition; J96.10 Chronic respiratory failure, unspecified whether with hypoxia or hypercapnia; Z16.12 Extended spectrum beta lactamase (ESBL) resistance; E87.5 Hyperkalemia; M54.16 Radiculopathy, lumbar region; E04.1 Nontoxic single thyroid nodule; E66.9 Obesity, unspecified; E11.65 Type 2 diabetes mellitus with hyperglycemia; E78.5 Hyperlipidemia, unspecified; I11.0 Hypertensive heart disease with heart failure; E86.0 Dehydration; I48.0 Paroxysmal atrial fibrillation; M19.90 Unspecified osteoarthritis, unspecified site; Z82.49 Family history of ischemic heart disease and other diseases of the circulatory system; Z83.3 Family history of diabetes mellitus; Z86.16 Personal history of COVID-19; Z86.711 Personal history of pulmonary embolism; Z86.718 Personal history of other venous thrombosis and embolism; Z87.01 Personal history of pneumonia (recurrent); Z20.822 Contact with and (suspected) exposure to COVID-19; B96.1 Klebsiella pneumoniae [K. pneumoniae] as the cause of diseases classified elsewhere
CPT/HCPCS: 36415; 51702; 70450; 71045; 71250; 72100; 72170; 73562; 76536; 80053; 81001; 82550; 82962; 83036; 83735; 83880; 84132; 84439; 84443; 84481; 84484; 85007; 85025; 85027; 85049; 87040; 87086; 87088; 87186; 87426; 93005; 94640; 96365; 96366; 96368; 96375; 97116; 97530; G0378; J0696; J1335; J1815; J2543; J3490; J7060

== ENCOUNTER → 2021-03-17 | Outpatient (CLI) | payer MEDICARE ==
[~2021-03-17] MED LIST changes: -APIX5TAB PO; +GABA300C10 PO; +LOPE2CAP PO; +MELO1TAB56 PO; +METH750T22 PO; +RIV20T PO
[2021-03-17 11:35] LABS: BUN/Creatinine Ratio 28.8; Calcium 9.2 mg/dL (8.5-10.1); Potassium 4.1 mmol/L (3.5-5.1)
== END | disposition home or self-care (01) ==
LOC: LAB 10:10
PROVIDERS: ATTEND Internal Medicine
DX: E11.9 Type 2 diabetes mellitus without complications (principal)
CPT/HCPCS: 36415; 80048; 83036

== ENCOUNTER → 2021-05-19 | Outpatient (CLI) | payer MEDICARE ==
[~2021-05-19] MED LIST changes: +IOHEXOL 350 MG/ML 100ML IJ ONE; +READI-CAT 2 (BARIUM SULF)(VANILLA SMOOTHIE) 450ML ONE
[2021-05-19 08:10] VITALS: BP 134/54
[2021-05-19 09:02] LABS: Albumin 3.2 g/dL (3.4-5.0); Basophils # (auto) 0 10 ^3/uL (0-0.2); Basophils % (auto) 0.6 % (0.0-2.0); Calcium 9.1 mg/dL (8.5-10.1); Eosinophils # (auto) 0.1 10 ^3/uL (0-0.8); Eosinophils % (auto) 1.3 % (0.0-7.0); Hematocrit 40.8 % (36.0-46.0); Hemoglobin 13.4 g/dL (12.2-16.2); Lymphocytes # (auto) 1.9 10 ^3/uL (0.4-5.4); Lymphocytes % (auto) 38.3 % (10.0-50.0); Mean Corpuscular Hemoglobin 27.5 pg (28.0-32.0); Mean Corpuscular Hgb Conc. 32.9 g/dL (32.0-36.0); Mean Corpuscular Volume 83.6 fL (80.0-100.0); Monocytes # (auto) 0.4 10 ^3/uL (0-1.3); Monocytes % (auto) 8.4 % (0.0-12.0); Neutrophils # (auto) 2.5 10 ^3/uL (1.6-8.6); Neutrophils % (auto) 51.4 % (37.0-80.0); Nucleated Red Blood Cells % 0.1 %; Potassium 4.4 mmol/L (3.5-5.1); Red Blood Cells 4.87 10^6/uL (4.0-5.20); Red Cell Distribution Width 14.3 % (11.8-14.3); White Blood Cell 4.9 10^3/uL (4.4-10.8)
[2021-05-19 09:06] LABS: BUN/Creatinine Ratio 29.2; Bilirubin, Total 0.7 mg/dL (0.2-1.0); Total Protein 6.8 g/dL (6.4-8.2)
[2021-05-19 09:51] VITALS: BP 147/66
== END | disposition home or self-care (01) ==
LOC: Rad HDHVI 08:07
PROVIDERS: ATTEND Internal Medicine
DX: R94.4 Abnormal results of kidney function studies (principal); N39.0 Urinary tract infection, site not specified; R70.0 Elevated erythrocyte sedimentation rate; I10 Essential (primary) hypertension; R10.9 Unspecified abdominal pain; I70.0 Atherosclerosis of aorta
CPT/HCPCS: 36415; 74177; 80053; 85025; 85652; 87086; 87088; 87186; G0463; Q9967

== ENCOUNTER → 2021-09-30 | Outpatient (CLI) | payer MEDICARE, MEDICAID ==
[~2021-09-30] MED LIST changes: -IOHEXOL 350 MG/ML 100ML IJ ONE; -READI-CAT 2 (BARIUM SULF)(VANILLA SMOOTHIE) 450ML ONE
== END | disposition home or self-care (01) ==
LOC: Rad HDHVI 15:08
PROVIDERS: ATTEND Internal Medicine
DX: I08.8 Other rheumatic multiple valve diseases (principal)
CPT/HCPCS: 93306

== ENCOUNTER → 2021-10-14 | Outpatient (CLI) | payer MEDICARE, MEDICAID ==
[~2021-10-14] VITALS: Ht 149.9 cm; Wt 81.6 kg
[~2021-10-14] MED LIST changes: +ADENOSINE 69 MG in GIVE UN-DILUTED 0 ML IV ONE; +ADENOSINE 90 MG/30 ML INJ IV ONE
== END | disposition home or self-care (01) ==
LOC: Rad HDHVI 13:38
PROVIDERS: ATTEND Internal Medicine
DX: I10 Essential (primary) hypertension (principal); E78.5 Hyperlipidemia, unspecified; E11.65 Type 2 diabetes mellitus with hyperglycemia; I48.20 Chronic atrial fibrillation, unspecified; R07.9 Chest pain, unspecified; R06.00 Dyspnea, unspecified
CPT/HCPCS: 78452; 93005; 96374; 96375; A9500; J0153

== ENCOUNTER → 2021-10-25 | Outpatient (CLI) | payer MEDICARE, MEDICAID ==
[~2021-10-25] MED LIST changes: -ADENOSINE 69 MG in GIVE UN-DILUTED 0 ML IV ONE; -ADENOSINE 90 MG/30 ML INJ IV ONE
[2021-10-25 11:56] LABS: Basophils # (auto) 0 10 ^3/uL (0-0.2); Basophils % (auto) 0.6 % (0.0-2.0); Eosinophils # (auto) 0.1 10 ^3/uL (0-0.8); Eosinophils % (auto) 1.2 % (0.0-7.0); Hematocrit 41.2 % (36.0-46.0); Lymphocytes # (auto) 2.1 10 ^3/uL (0.4-5.4); Lymphocytes % (auto) 42.5 % (10.0-50.0); Mean Corpuscular Hemoglobin 28.7 pg (28.0-32.0); Mean Corpuscular Hgb Conc. 33.9 g/dL (32.0-36.0); Mean Corpuscular Volume 84.6 fL (80.0-100.0); Monocytes # (auto) 0.4 10 ^3/uL (0-1.3); Monocytes % (auto) 7.6 % (0.0-12.0); Neutrophils # (auto) 2.4 10 ^3/uL (1.6-8.6); Neutrophils % (auto) 48.1 % (37.0-80.0); Nucleated Red Blood Cells % 0.2 %; Red Blood Cells 4.87 10^6/uL (4.0-5.20); Red Cell Distribution Width 14.7 % (11.8-14.3)
[2021-10-25 12:29] LABS: Albumin 3.3 g/dL (3.4-5.0); Calcium 9.3 mg/dL (8.5-10.1); Potassium 4.2 mmol/L (3.5-5.1)
[2021-10-25 12:31] LABS: Free T4 (Free Thyroxine) 1.42 ng/dL (0.89-1.76)
[2021-10-25 12:34] LABS: BUN/Creatinine Ratio 32.5; Bilirubin, Total 1.2 mg/dL (0.2-1.0)
[2021-10-25 12:55] LABS: Urine Blood Negative /uL (Negative); Urine Specific Gravity 1.015 (1.001-1.035)
== END | disposition home or self-care (01) ==
LOC: LAB 08:09
PROVIDERS: ATTEND Internal Medicine
DX: D51.3 Other dietary vitamin B12 deficiency anemia (principal); D64.9 Anemia, unspecified; E11.9 Type 2 diabetes mellitus without complications; E55.9 Vitamin D deficiency, unspecified; I10 Essential (primary) hypertension; R00.2 Palpitations; R53.1 Weakness; R30.0 Dysuria
CPT/HCPCS: 36415; 80053; 80061; 81003; 82306; 82607; 83036; 84439; 84443; 85025

== ENCOUNTER 2021-11-24 11:53 | Inpatient (IN) | payer MEDICARE, MEDICAID ==
[~2021-11-24] VITALS: Ht 149.9 cm; Wt 84.2 kg
[2021-11-24] MEDS ORDERED: MORPHINE SULFATE INJ 2 MG/ml SYRG IV PRN ×2 (16:30→20:15)
[2021-11-24] MEDS ORDERED: NITROGLYCERIN 0.4 MG SL TAB SL PRN (16:30)
[2021-11-24] MEDS ORDERED: SODIUM CHLORIDE 0.9% 1,000 ML IV SCH (20:15)
[2021-11-24] MEDS ORDERED: LORazepam 0.5 MG TAB PO PRN (20:15)
[2021-11-24] MEDS ORDERED: ACETAMINOPHEN 325 MG TAB PO PRN (20:15)
[2021-11-24] MEDS ORDERED: DEXTROSE (50%) 50ML SYRG IV PRN (20:15)
[2021-11-24] MEDS ORDERED: ONDANSETRON HCL 4 MG/2 ML VIAL IV PRN (20:15)
[2021-11-24] MEDS ORDERED: DOCUSATE SOD 100 MG CAP PO PRN (20:15)
[2021-11-24] MEDS ORDERED: BENAZEPRIL HCL 10 MG TAB PO ONE (20:15)
[2021-11-24] MEDS ORDERED: HYDROcodone-ACET 5/325MG TAB PO PRN (20:15)
[2021-11-24] MEDS ORDERED: hydrALAZINE HCL 20 MG/ML VL IV PRN (20:15)
[2021-11-24 20:23] LABS: Basophils # (auto) 0 10 ^3/uL (0-0.2); Basophils % (auto) 0.4 % (0.0-2.0); Eosinophils # (auto) 0.1 10 ^3/uL (0-0.8); Eosinophils % (auto) 1.7 % (0.0-7.0); Hematocrit 39.9 % (36.0-46.0); Hemoglobin 13.4 g/dL (12.2-16.2); Lymphocytes % (auto) 27.8 % (10.0-50.0); Mean Corpuscular Hemoglobin 28.4 pg (28.0-32.0); Mean Corpuscular Hgb Conc. 33.7 g/dL (32.0-36.0); Mean Corpuscular Volume 84.2 fL (80.0-100.0); Monocytes # (auto) 0.6 10 ^3/uL (0-1.3); Monocytes % (auto) 8.4 % (0.0-12.0); Neutrophils # (auto) 4.5 10 ^3/uL (1.6-8.6); Neutrophils % (auto) 61.7 % (37.0-80.0); Nucleated Red Blood Cells % 0.1 %; Red Blood Cells 4.74 10^6/uL (4.0-5.20); Red Cell Distribution Width 14.6 % (11.8-14.3); White Blood Cell 7.3 10^3/uL (4.4-10.8)
[2021-11-24 20:41] LABS: INR 1.03 (0.9-1.15); Partial Thromboplastin Time 27.1 sec (23.6-33.0)
[2021-11-24 20:53] LABS: Magnesium 2.1 mg/dL (1.6-2.6); Phosphorus 2.5 mg/dL (2.5-4.90)
[2021-11-24] MEDS: InsuLIN REG 1unit/0.01ml Soln (100units/ml) SC SCH (22:00)
[2021-11-24] MEDS: ACCU-CHEK COMFORT CURVE STRIP VI SCH (22:00)
[2021-11-24] MEDS: GABAPENTIN 100 MG CAP PO SCH (22:29)
[2021-11-25] MEDS: HEPARIN DRIP/D5W 100UNITS/ML 250 ML IV SCH ×2 (02:43→07:41)
[2021-11-25 05:00] VITALS: BP 124/56
[2021-11-25] MEDS: GABAPENTIN 100 MG CAP PO SCH ×3 (06:16→21:32)
[2021-11-25] MEDS: ACCU-CHEK COMFORT CURVE STRIP VI SCH ×4 (06:17→21:37)
[2021-11-25] MEDS: InsuLIN REG 1unit/0.01ml Soln (100units/ml) SC SCH ×5 (06:17→21:45)
[2021-11-25 06:59] LABS: Basophils # (auto) 0 10 ^3/uL (0-0.2); Basophils % (auto) 0.7 % (0.0-2.0); Eosinophils # (auto) 0.1 10 ^3/uL (0-0.8); Eosinophils % (auto) 1.4 % (0.0-7.0); Hematocrit 39.9 % (36.0-46.0); Hemoglobin 13.3 g/dL (12.2-16.2); Lymphocytes # (auto) 1.8 10 ^3/uL (0.4-5.4); Lymphocytes % (auto) 27.7 % (10.0-50.0); Mean Corpuscular Hemoglobin 28.2 pg (28.0-32.0); Mean Corpuscular Hgb Conc. 33.2 g/dL (32.0-36.0); Mean Corpuscular Volume 84.9 fL (80.0-100.0); Monocytes # (auto) 0.5 10 ^3/uL (0-1.3); Monocytes % (auto) 7.9 % (0.0-12.0); Neutrophils # (auto) 3.9 10 ^3/uL (1.6-8.6); Neutrophils % (auto) 62.3 % (37.0-80.0); Nucleated Red Blood Cells % 0.1 %; Red Cell Distribution Width 14.5 % (11.8-14.3); White Blood Cell 6.3 10^3/uL (4.4-10.8)
[2021-11-25 07:21] LABS: Albumin 3.1 g/dL (3.4-5.0); Magnesium 2.1 mg/dL (1.6-2.6); Potassium 3.9 mmol/L (3.5-5.1); Uric Acid 4.4 mg/dL (2.6-6.0)
[2021-11-25 07:24] LABS: INR 1.08 (0.9-1.15)
[2021-11-25 07:25] LABS: BUN/Creatinine Ratio 23.5; Bilirubin, Total 1.3 mg/dL (0.2-1.0); CRP High Sensitivity 0.39 mg/dL (< 0.3); Phosphorus 2.7 mg/dL (2.5-4.90); Total Protein 6.6 g/dL (6.4-8.2)
[2021-11-25 07:28] LABS: Partial Thromboplastin Time 87.3 sec (23.6-33.0)
[2021-11-25 08:00] VITALS: BP 127/58
[2021-11-25] MEDS ORDERED: FAMOTIDINE (10MG/ML) 2ML VL IV SCH (10:00)
[2021-11-25] MEDS ORDERED: BENAZEPRIL HCL 10 MG TAB PO SCH (10:00)
[2021-11-25] MEDS: cefTRIAXone 1GM/50ML D5W 50 ML IV SCH (10:27)
[2021-11-25 12:00] VITALS: BP 106/58
[2021-11-25 13:42] LABS: INR 1.06 (0.9-1.15); Partial Thromboplastin Time 66.5 sec (23.6-33.0)
[2021-11-25] MEDS ORDERED: PANT1INJ3 PO (14:54)
[2021-11-25] MEDS ORDERED: NITR1SPR TL (14:54)
[2021-11-25] MEDS ORDERED: DULA0.5I SC (14:54)
[2021-11-25] MEDS ORDERED: EMPA1TAB3 PO (14:54)
[2021-11-25 16:00] VITALS: BP 125/63
[2021-11-25] MEDS ORDERED: LOPERAMIDE HCL 2 MG CAP/TAB PO PRN (16:00)
[2021-11-25 17:01] LABS: Urine Bacteria NONE SEEN /hpf (None Seen); Urine Blood Negative /uL (Negative); Urine Specific Gravity 1.011 (1.001-1.035); Urine WBC 18 /hpf (0 - 5)
[2021-11-25 17:19] LABS: Alcohol, Urine < 3.0 mg/dL (0-10); Amphetamine Screen, Urine NEGATIVE (NEGATIVE); Barbiturate Scree,Urine NEGATIVE (NEGATIVE); Benzodiazephine Screen, Urine NEGATIVE (NEGATIVE); Cannabinoid Screen, Urine NEGATIVE (NEGATIVE); Cocaine Screen, Urine NEGATIVE (NEGATIVE); Opiate Scree,Urine NEGATIVE (NEGATIVE); Phencyclidine Screen, Urine NEGATIVE (NEGATIVE); Protein, Urine 8.2 mg/dL (0.0-11.9)
[2021-11-25] MEDS ORDERED: RIVAROXABAN 20 MG TAB PO SCH ×2 (18:00)
[2021-11-25 19:49] LABS: INR 1.05 (0.9-1.15); Partial Thromboplastin Time 27.2 sec (23.6-33.0)
[2021-11-25 22:00] VITALS: BP 139/64
[2021-11-26 04:36] VITALS: BP 157/70
[2021-11-26] MEDS: InsuLIN REG 1unit/0.01ml Soln (100units/ml) SC SCH (05:00)
[2021-11-26] MEDS: GABAPENTIN 100 MG CAP PO SCH ×2 (05:00→14:00)
[2021-11-26] MEDS: ACCU-CHEK COMFORT CURVE STRIP VI SCH ×2 (05:01→11:42)
[2021-11-26 05:44] LABS: Basophils # (auto) 0 10 ^3/uL (0-0.2); Basophils % (auto) 0.5 % (0.0-2.0); Eosinophils # (auto) 0.1 10 ^3/uL (0-0.8); Eosinophils % (auto) 1.5 % (0.0-7.0); Hematocrit 39.8 % (36.0-46.0); Hemoglobin 13.5 g/dL (12.2-16.2); Lymphocytes # (auto) 1.8 10 ^3/uL (0.4-5.4); Lymphocytes % (auto) 30.5 % (10.0-50.0); Mean Corpuscular Hemoglobin 28.5 pg (28.0-32.0); Mean Corpuscular Volume 83.7 fL (80.0-100.0); Monocytes # (auto) 0.5 10 ^3/uL (0-1.3); Monocytes % (auto) 9.3 % (0.0-12.0); Neutrophils # (auto) 3.4 10 ^3/uL (1.6-8.6); Neutrophils % (auto) 58.2 % (37.0-80.0); Nucleated Red Blood Cells % 0.1 %; Red Blood Cells 4.75 10^6/uL (4.0-5.20); Red Cell Distribution Width 14.7 % (11.8-14.3); White Blood Cell 5.8 10^3/uL (4.4-10.8)
[2021-11-26 06:01] LABS: Potassium 3.7 mmol/L (3.5-5.1)
[2021-11-26 06:03] LABS: BUN/Creatinine Ratio 35.4
[2021-11-26] MEDS: cefTRIAXone 1GM/50ML D5W 50 ML IV SCH (08:58)
[2021-11-26 09:00] VITALS: BP 114/54
[2021-11-26] MEDS ORDERED: ENALAPRIL MALEATE 10 MG TAB PO SCH (10:00)
[2021-11-26] MEDS ORDERED: FAMOTIDINE 20 MG TAB PO SCH (10:00)
[2021-11-26 13:00] VITALS: BP 130/47
[2021-11-26] MEDS ORDERED: NITR-79 PO (13:16)
[2021-11-26] MEDS ORDERED: RIVA20TA PO (14:07)
[2021-11-26 15:18] VITALS: BP 114/54
== END 2021-11-26 14:12 | disposition home health service (06) | DRG 300 ==
LOC: ER 11:53 → UNDOADMIN 16:24 → TELE 16:24 → TELE-EAST 21:20
PROVIDERS: ADMIT Hospitalist; ATTEND Internal Medicine
DX: I82.412 Acute embolism and thrombosis of left femoral vein (principal); N39.0 Urinary tract infection, site not specified; D68.69 Other thrombophilia; E66.01 Morbid (severe) obesity due to excess calories; E78.5 Hyperlipidemia, unspecified; I48.0 Paroxysmal atrial fibrillation; U09.9 Post COVID-19 condition, unspecified; E11.42 Type 2 diabetes mellitus with diabetic polyneuropathy; Z20.822 Contact with and (suspected) exposure to COVID-19; I10 Essential (primary) hypertension; Z86.711 Personal history of pulmonary embolism; Z86.718 Personal history of other venous thrombosis and embolism; Z87.01 Personal history of pneumonia (recurrent); Z79.899 Other long term (current) drug therapy; Z68.37 Body mass index [BMI] 37.0-37.9, adult; Z79.84 Long term (current) use of oral hypoglycemic drugs
CPT/HCPCS: 36415; 71045; 80048; 80053; 80061; 80307; 81001; 82550; 82728; 82962; 83036; 83615; 83690; 83735; 83880; 84100; 84156; 84439; 84443; 84484; 84550; 85025; 85379; 85610; 85652; 85730; 86141; 87040; 87086; 93971; 96374; G0378; J0696; J1642; J1815; J3490

== ENCOUNTER 2021-12-27 22:33 | Inpatient (IN) | payer MEDICARE, MEDICAID ==
[~2021-12-27] VITALS: Ht 165.1 cm; Wt 84.1 kg
[~2021-12-27 22:33] MED LIST changes: +DULA0.5I SC; +EMPA1TAB3 PO; +NITR-79 PO; +NITR1SPR TL; +PANT1INJ3 PO; +RIVA20TA PO
[2021-12-28] MEDS ORDERED: fentaNYL CITRATE 100 MCG/2 ML VL IV ONE (00:15)
[2021-12-28 01:21] LABS: Basophils # (auto) 0 10 ^3/uL (0-0.2); Basophils % (auto) 0.4 % (0.0-2.0); Eosinophils # (auto) 0.1 10 ^3/uL (0-0.8); Eosinophils % (auto) 1.2 % (0.0-7.0); Hematocrit 38.4 % (36.0-46.0); Lymphocytes % (auto) 24.4 % (10.0-50.0); Mean Corpuscular Hemoglobin 28.6 pg (28.0-32.0); Mean Corpuscular Hgb Conc. 33.7 g/dL (32.0-36.0); Mean Corpuscular Volume 84.7 fL (80.0-100.0); Monocytes # (auto) 0.5 10 ^3/uL (0-1.3); Monocytes % (auto) 6.5 % (0.0-12.0); Neutrophils # (auto) 5.5 10 ^3/uL (1.6-8.6); Neutrophils % (auto) 67.5 % (37.0-80.0); Red Blood Cells 4.53 10^6/uL (4.0-5.20); Red Cell Distribution Width 14.7 % (11.8-14.3); White Blood Cell 8.2 10^3/uL (4.4-10.8)
[2021-12-28 01:36] LABS: INR 1.01 (0.9-1.15); Partial Thromboplastin Time 27.6 sec (24.6-33.4)
[2021-12-28 01:41] LABS: Albumin 3.1 g/dL (3.4-5.0); BUN/Creatinine Ratio 27.3; Potassium 3.7 mmol/L (3.5-5.1)
[2021-12-28 01:43] LABS: Bilirubin, Total 0.7 mg/dL (0.2-1.0); Total Protein 6.3 g/dL (6.4-8.2)
[2021-12-28] MEDS ORDERED: DEXTROSE (50%) 50ML SYRG IV PRN (02:45)
[2021-12-28] MEDS ORDERED: ONDANSETRON HCL 4 MG/2 ML VIAL IV PRN ×2 (02:45→13:30)
[2021-12-28] MEDS: SODIUM CHLORIDE 0.9% 1,000 ML IV SCH ×2 (02:59→17:56)
[2021-12-28] MEDS: ACCU-CHEK COMFORT CURVE STRIP VI SCH ×4 (05:44→23:30)
[2021-12-28] MEDS: InsuLIN REG 1unit/0.01ml Soln (100units/ml) SC SCH ×4 (05:44→23:31)
[2021-12-28] MEDS: PANTOPRAZOLE 40 MG/10 ML VIAL INJ IV SCH (09:41)
[2021-12-28] MEDS ORDERED: ceFAZolin 1GM/50ML 100 ML IV ONE (10:44)
[2021-12-28] MEDS ORDERED: MIDAZOLAM HCL 2MG/2ML 2ml VIAL (1mg/ml) ONE (12:27)
[2021-12-28] MEDS ORDERED: fentaNYL CITRATE 100 MCG/2 ML VL ONE (12:27)
[2021-12-28] MEDS ORDERED: HYDROmorphone HCL 2 MG/ML VL/or syr IV PRN (13:30)
[2021-12-28] MEDS ORDERED: PROPOFOL 10 MG/ML 20 ML IV ONE ×2 (13:32→13:36)
[2021-12-28] MEDS ORDERED: ONDANSETRON HCL 4 MG/2 ML VIAL ONE (13:47)
[2021-12-28] MEDS ORDERED: LACTATED RINGER'S 1,000 ML IV SCH (14:15)
[2021-12-28] MEDS ORDERED: ENALAPRIL MALEATE 10 MG TAB PO ONE (15:00)
[2021-12-28] MEDS ORDERED: hydrALAZINE HCL 20 MG/ML VL IV PRN (15:00)
[2021-12-28 16:56] VITALS: BP 118/70
[2021-12-28] MEDS: ceFAZolin 1GM/50ML 50 ML IV SCH ×2 (18:22→23:32)
[2021-12-28] MEDS: HYDROcodone-ACET 5/325MG TAB PO PRN (18:22)
[2021-12-28 22:00] VITALS: BP 106/40
[2021-12-29] MEDS: HYDROcodone-ACET 5/325MG TAB PO PRN ×4 (00:25→23:19)
[2021-12-29 04:21] LABS: Urine Bacteria NONE SEEN /hpf (None Seen); Urine Blood Negative /uL (Negative); Urine Hyaline Cast FEW /lpf (0 - 2); Urine WBC 132 /hpf (0 - 5)
[2021-12-29 05:00] VITALS: BP 104/47
[2021-12-29] MEDS: ACCU-CHEK COMFORT CURVE STRIP VI SCH ×4 (05:15→23:42)
[2021-12-29] MEDS: SODIUM CHLORIDE 0.9% 1,000 ML IV SCH (05:15)
[2021-12-29] MEDS: ceFAZolin 1GM/50ML 50 ML IV SCH (05:15)
[2021-12-29] MEDS: InsuLIN REG 1unit/0.01ml Soln (100units/ml) SC SCH ×4 (05:15→23:42)
[2021-12-29 06:29] LABS: Basophils # (auto) 0 10 ^3/uL (0-0.2); Basophils % (auto) 0.3 % (0.0-2.0); Eosinophils # (auto) 0 10 ^3/uL (0-0.8); Eosinophils % (auto) 0.5 % (0.0-7.0); Hematocrit 35.9 % (36.0-46.0); Hemoglobin 11.7 g/dL (12.2-16.2); Lymphocytes # (auto) 1.6 10 ^3/uL (0.4-5.4); Lymphocytes % (auto) 21.8 % (10.0-50.0); Mean Corpuscular Hemoglobin 28.4 pg (28.0-32.0); Mean Corpuscular Hgb Conc. 32.7 g/dL (32.0-36.0); Mean Corpuscular Volume 86.7 fL (80.0-100.0); Monocytes # (auto) 0.7 10 ^3/uL (0-1.3); Monocytes % (auto) 8.8 % (0.0-12.0); Neutrophils # (auto) 5.1 10 ^3/uL (1.6-8.6); Neutrophils % (auto) 68.6 % (37.0-80.0); Red Blood Cells 4.14 10^6/uL (4.0-5.20); White Blood Cell 7.4 10^3/uL (4.4-10.8)
[2021-12-29 06:45] LABS: BUN/Creatinine Ratio 21.5; Calcium 8.2 mg/dL (8.5-10.1); Potassium 4.1 mmol/L (3.5-5.1)
[2021-12-29 09:00] VITALS: BP 108/36
[2021-12-29] MEDS: PANTOPRAZOLE 40 MG/10 ML VIAL INJ IV SCH (09:01)
[2021-12-29] MEDS ORDERED: ENALAPRIL MALEATE 10 MG TAB PO SCH (10:00)
[2021-12-29] MEDS ORDERED: FUROSEMIDE 20 MG/2 ML VIAL IV ONE (11:30)
[2021-12-29] MEDS ORDERED: POTASSIUM CHL 20 Meq TABLET PO ONE (11:30)
[2021-12-29] MEDS ORDERED: cefTRIAXone 1GM/50ML D5W 50 ML IV ONE (11:30)
[2021-12-29] MEDS: ACETAMINOPHEN 325 MG TAB PO PRN (12:05)
[2021-12-29 13:00] VITALS: BP 95/38
[2021-12-29 14:29] LABS: Hematocrit 35.9 % (36.0-46.0); Hemoglobin 11.9 g/dL (12.2-16.2)
[2021-12-29 17:00] VITALS: BP 105/61
[2021-12-29] MEDS ORDERED: RIVAROXABAN 20 MG TAB PO SCH (18:00)
[2021-12-29 22:00] VITALS: BP 118/56
[2021-12-30] MEDS: ACETAMINOPHEN 325 MG TAB PO PRN (03:58)
[2021-12-30 05:00] VITALS: BP 120/56
[2021-12-30] MEDS: ACCU-CHEK COMFORT CURVE STRIP VI SCH ×2 (06:00→11:18)
[2021-12-30] MEDS: InsuLIN REG 1unit/0.01ml Soln (100units/ml) SC SCH ×2 (06:00→11:19)
[2021-12-30] MEDS: HYDROcodone-ACET 5/325MG TAB PO PRN ×2 (06:02→16:43)
[2021-12-30] MEDS ORDERED: cefTRIAXone 1GM/50ML D5W 50 ML IV SCH (09:00)
[2021-12-30 09:26] VITALS: BP 107/56
[2021-12-30] MEDS ORDERED: PANTOPRAZOLE 40 MG TAB PO SCH (10:00)
[2021-12-30] MEDS ORDERED: FUROSEMIDE 20 MG/2 ML VIAL IV ONE (10:30)
[2021-12-30] MEDS ORDERED: POTASSIUM CHL 20 Meq TABLET PO ONE (10:30)
[2021-12-30 13:00] VITALS: BP 112/62
[2021-12-30 14:27] LABS: Hematocrit 38.6 % (36.0-46.0); Hemoglobin 12.8 g/dL (12.2-16.2)
== END 2021-12-30 18:00 | disposition home or self-care (01) | DRG 493 ==
LOC: EDBD 22:33 → ER 22:33 → EDUNIT# 22:33 → OVERFLOW 12-28 02:38 → EAST 12-28 15:52
PROVIDERS: ADMIT Nurse Practitioner; ATTEND Internal Medicine
PROC: 0SSG04Z Reposition Left Ankle Joint with Internal Fixation Device, Open Approach (ICD-10-PCS; 2021-12-28)
PROC: 0QSK04Z Reposition Left Fibula with Internal Fixation Device, Open Approach (ICD-10-PCS; principal; 2021-12-28 12:24)
DX: S82.852A Displaced trimalleolar fracture of left lower leg, initial encounter for closed fracture (principal); N39.0 Urinary tract infection, site not specified; I10 Essential (primary) hypertension; E11.9 Type 2 diabetes mellitus without complications; Z20.822 Contact with and (suspected) exposure to COVID-19; E66.9 Obesity, unspecified; I48.0 Paroxysmal atrial fibrillation; M72.2 Plantar fascial fibromatosis; S92.325A Nondisplaced fracture of second metatarsal bone, left foot, initial encounter for closed fracture; S92.335A Nondisplaced fracture of third metatarsal bone, left foot, initial encounter for closed fracture; M77.30 Calcaneal spur, unspecified foot; W01.0XXA Fall on same level from slipping, tripping and stumbling without subsequent striking against object, initial encounter; Z86.711 Personal history of pulmonary embolism; Z68.30 Body mass index [BMI] 30.0-30.9, adult; Z86.718 Personal history of other venous thrombosis and embolism; Y93.89 Activity, other specified; Y92.89 Other specified places as the place of occurrence of the external cause; Y99.8 Other external cause status; J44.9 Chronic obstructive pulmonary disease, unspecified
CPT/HCPCS: 36415; 71045; 73590; 73600; 73610; 73620; 76000; 80048; 80053; 81001; 82962; 83880; 84484; 85014; 85018; 85025; 85610; 85730; 86850; 86900; 86901; 87086; 87088; 87186; 96374; 96375; 97110; 97116; 97163; 97530; C1713; C9113; G0378; J0690; J0696; J1815; J2250; J2405; J2704

== ENCOUNTER 2022-03-07 08:57 | Inpatient (IN) | payer MEDICARE, MEDICAID ==
[~2022-03-07] VITALS: Ht 152.4 cm; Wt 81.0 kg
[2022-03-07] MEDS ORDERED: CLINDAMYCIN 600MG IV 50 ML IV ONE (13:15)
[2022-03-07] MEDS ORDERED: cefTRIAXone 1GM/50ML D5W 50 ML IV ONE (13:15)
[2022-03-07 13:50] LABS: Basophils # (auto) 0 10 ^3/uL (0-0.2); Basophils % (auto) 0.3 % (0.0-2.0); Eosinophils # (auto) 0.1 10 ^3/uL (0-0.8); Eosinophils % (auto) 1.9 % (0.0-7.0); Hematocrit 43.9 % (36.0-46.0); Hemoglobin 14.3 g/dL (12.2-16.2); Lymphocytes # (auto) 2.2 10 ^3/uL (0.4-5.4); Lymphocytes % (auto) 31.7 % (10.0-50.0); Mean Corpuscular Hemoglobin 27.8 pg (28.0-32.0); Mean Corpuscular Hgb Conc. 32.6 g/dL (32.0-36.0); Mean Corpuscular Volume 85.1 fL (80.0-100.0); Monocytes # (auto) 0.5 10 ^3/uL (0-1.3); Monocytes % (auto) 6.9 % (0.0-12.0); Neutrophils # (auto) 4.1 10 ^3/uL (1.6-8.6); Neutrophils % (auto) 59.2 % (37.0-80.0); Nucleated Red Blood Cells % 0.1 %; Red Blood Cells 5.15 10^6/uL (4.0-5.20); Red Cell Distribution Width 14.7 % (11.8-14.3)
[2022-03-07 14:05] LABS: Albumin 3.5 g/dL (3.4-5.0); Calcium 9.3 mg/dL (8.5-10.1); Potassium 4.3 mmol/L (3.5-5.1)
[2022-03-07 14:07] LABS: Bilirubin, Total 0.8 mg/dL (0.2-1.0); Total Protein 7.5 g/dL (6.4-8.2)
[2022-03-07] MEDS ORDERED: ONDANSETRON HCL 4 MG/2 ML VIAL IV PRN (17:00)
[2022-03-07] MEDS ORDERED: hydrALAZINE HCL 20 MG/ML VL IV PRN (18:30)
[2022-03-07] MEDS ORDERED: DEXTROSE (50%) 50ML SYRG IV PRN (18:30)
[2022-03-07 19:03] LABS: Cholesterol 136 mg/dL (< 200)
[2022-03-07 19:05] LABS: HDL Cholesterol 50 mg/dL (40-59); LDL Cholesterol 68 mg/dL (< 100); Triglycerides 157 mg/dL (< 150)
[2022-03-07 20:29] LABS: INR 1.02 (0.9-1.15)
[2022-03-07] MEDS: InsuLIN REG 1unit/0.01ml Soln (100units/ml) SC SCH (22:00)
[2022-03-07] MEDS: GABAPENTIN 300 MG CAP PO SCH (23:00)
[2022-03-07] MEDS: ACCU-CHEK COMFORT CURVE STRIP VI SCH (23:00)
[2022-03-07] MEDS: CLINDAMYCIN 600MG IV 50 ML IV SCH (23:00)
[2022-03-07 23:39] VITALS: BP 146/59
[2022-03-08 05:00] VITALS: BP 113/61
[2022-03-08 05:09] LABS: Basophils # (auto) 0 10 ^3/uL (0-0.2); Basophils % (auto) 0.6 % (0.0-2.0); Eosinophils # (auto) 0.1 10 ^3/uL (0-0.8); Eosinophils % (auto) 2.3 % (0.0-7.0); Hematocrit 38.5 % (36.0-46.0); Hemoglobin 12.7 g/dL (12.2-16.2); Lymphocytes # (auto) 2.2 10 ^3/uL (0.4-5.4); Lymphocytes % (auto) 34.3 % (10.0-50.0); Mean Corpuscular Hemoglobin 27.6 pg (28.0-32.0); Mean Corpuscular Volume 83.5 fL (80.0-100.0); Monocytes # (auto) 0.6 10 ^3/uL (0-1.3); Monocytes % (auto) 8.9 % (0.0-12.0); Neutrophils # (auto) 3.5 10 ^3/uL (1.6-8.6); Neutrophils % (auto) 53.9 % (37.0-80.0); Red Blood Cells 4.61 10^6/uL (4.0-5.20); Red Cell Distribution Width 14.6 % (11.8-14.3); White Blood Cell 6.5 10^3/uL (4.4-10.8)
[2022-03-08 05:28] LABS: Albumin 2.7 g/dL (3.4-5.0); Calcium 8.7 mg/dL (8.5-10.1); Potassium 3.9 mmol/L (3.5-5.1)
[2022-03-08 05:32] LABS: BUN/Creatinine Ratio 25.9; Bilirubin, Total 0.7 mg/dL (0.2-1.0); Total Protein 5.9 g/dL (6.4-8.2)
[2022-03-08] MEDS: ACCU-CHEK COMFORT CURVE STRIP VI SCH ×4 (06:13→22:25)
[2022-03-08] MEDS: InsuLIN REG 1unit/0.01ml Soln (100units/ml) SC SCH ×4 (06:13→22:26)
[2022-03-08] MEDS: CLINDAMYCIN 600MG IV 50 ML IV SCH ×3 (06:15→22:25)
[2022-03-08 08:00] VITALS: BP 149/65
[2022-03-08 09:00] VITALS: BP 149/65
[2022-03-08] MEDS: cefTRIAXone 1GM/50ML D5W 50 ML IV SCH (09:10)
[2022-03-08] MEDS: ENALAPRIL MALEATE 10 MG TAB PO SCH (11:05)
[2022-03-08] MEDS: ENOXAPARIN SOD 40 MG/0.4 ML SYRINGE SC SCH (11:05)
[2022-03-08 13:00] VITALS: BP 115/56
[2022-03-08 17:00] VITALS: BP 144/57
[2022-03-08] MEDS ORDERED: ACETAMINOPHEN 500 MG TAB PO ONE (18:15)
[2022-03-08 22:00] VITALS: BP 127/64
[2022-03-08] MEDS: GABAPENTIN 300 MG CAP PO SCH (22:25)
[2022-03-09 05:00] VITALS: BP 131/51
[2022-03-09] MEDS: CLINDAMYCIN 600MG IV 50 ML IV SCH ×3 (06:16→22:00)
[2022-03-09] MEDS: ACCU-CHEK COMFORT CURVE STRIP VI SCH ×4 (06:17→22:01)
[2022-03-09] MEDS: InsuLIN REG 1unit/0.01ml Soln (100units/ml) SC SCH ×4 (06:17→21:59)
[2022-03-09 09:00] VITALS: BP 111/56
[2022-03-09] MEDS: ENALAPRIL MALEATE 10 MG TAB PO SCH (09:08)
[2022-03-09] MEDS: ENOXAPARIN SOD 40 MG/0.4 ML SYRINGE SC SCH (09:12)
[2022-03-09] MEDS: cefTRIAXone 1GM/50ML D5W 50 ML IV SCH (09:12)
[2022-03-09 13:00] VITALS: BP 129/60
[2022-03-09 17:00] VITALS: BP 137/61
[2022-03-09 21:38] VITALS: BP 135/66
[2022-03-09] MEDS: GABAPENTIN 300 MG CAP PO SCH (22:01)
[2022-03-10 04:38] VITALS: BP 120/81
[2022-03-10] MEDS: CLINDAMYCIN 600MG IV 50 ML IV SCH (06:19)
[2022-03-10] MEDS: InsuLIN REG 1unit/0.01ml Soln (100units/ml) SC SCH ×2 (07:00→13:43)
[2022-03-10] MEDS: ACCU-CHEK COMFORT CURVE STRIP VI SCH (07:05)
[2022-03-10 09:00] VITALS: BP 119/64
[2022-03-10] MEDS: cefTRIAXone 1GM/50ML D5W 50 ML IV SCH (09:15)
[2022-03-10] MEDS: ENALAPRIL MALEATE 10 MG TAB PO SCH (09:15)
[2022-03-10] MEDS: ENOXAPARIN SOD 40 MG/0.4 ML SYRINGE SC SCH (09:21)
[2022-03-10] MEDS ORDERED: LEVO500T31 PO (12:59)
[2022-03-10 13:19] VITALS: BP 110/51
[2022-03-10 16:51] VITALS: BP 118/67
[2022-03-10 17:49] VITALS: BP 119/64
== END 2022-03-10 19:10 | disposition home health service (06) | DRG 921 ==
LOC: ER 08:57 → OVERFLOW 16:57 → CENTRAL 21:02
PROVIDERS: ADMIT Registered Nurse; ATTEND Nurse Practitioner Acute Care
DX: T81.30XA Disruption of wound, unspecified, initial encounter (principal); E11.9 Type 2 diabetes mellitus without complications; I10 Essential (primary) hypertension; Z20.822 Contact with and (suspected) exposure to COVID-19; E66.9 Obesity, unspecified; Y83.8 Other surgical procedures as the cause of abnormal reaction of the patient, or of later complication, without mention of misadventure at the time of the procedure; Z68.34 Body mass index [BMI] 34.0-34.9, adult; Z79.2 Long term (current) use of antibiotics; Y92.89 Other specified places as the place of occurrence of the external cause
CPT/HCPCS: 36415; 71045; 73610; 73721; 80053; 80061; 82962; 83036; 83605; 83880; 85025; 85610; 87040; 87077; 87186; 87205; 96365; 96372; G0378; J0696; J1815; J3490

== ENCOUNTER → 2022-05-03 | Outpatient (CLI) | payer MEDICARE, MEDICAID ==
[~2022-05-03] MED LIST changes: +LEVO500T31 PO
[2022-05-03 12:58] LABS: Basophils # (auto) 0 10 ^3/uL (0-0.2); Basophils % (auto) 0.3 % (0.0-2.0); Eosinophils # (auto) 0.1 10 ^3/uL (0-0.8); Hematocrit 40.7 % (36.0-46.0); Hemoglobin 13.4 g/dL (12.2-16.2); Lymphocytes # (auto) 1.5 10 ^3/uL (0.4-5.4); Lymphocytes % (auto) 28.1 % (10.0-50.0); Mean Corpuscular Hemoglobin 27.9 pg (28.0-32.0); Mean Corpuscular Volume 84.7 fL (80.0-100.0); Monocytes # (auto) 0.4 10 ^3/uL (0-1.3); Monocytes % (auto) 7.7 % (0.0-12.0); Neutrophils # (auto) 3.3 10 ^3/uL (1.6-8.6); Neutrophils % (auto) 62.9 % (37.0-80.0); Nucleated Red Blood Cells % 0.1 %; Red Cell Distribution Width 14.9 % (11.8-14.3); White Blood Cell 5.2 10^3/uL (4.4-10.8)
[2022-05-03 13:13] LABS: Albumin 3.3 g/dL (3.4-5.0); BUN/Creatinine Ratio 33.3; Calcium 9.3 mg/dL (8.5-10.1); Potassium 4.1 mmol/L (3.5-5.1)
[2022-05-03 13:21] LABS: Bilirubin, Total 0.8 mg/dL (0.2-1.0); Total Protein 7.3 g/dL (6.4-8.2)
== END | disposition home or self-care (01) ==
LOC: Rad HDHVI 10:32
PROVIDERS: ATTEND Internal Medicine
DX: N39.0 Urinary tract infection, site not specified (principal)
CPT/HCPCS: 36415; 71046; 80053; 85025; 87086

== ENCOUNTER → 2022-10-31 | Outpatient (CLI) | payer MEDICARE, MEDICAID ==
[~2022-10-31] MED LIST changes: +ENAL1TAB48 PO; -ENAL20TA8 PO; +GABA-1250 PO; -GABA300C10 PO; +MELO-335 PO; -MELO1TAB56 PO; +METH-1182 PO; -METH750T22 PO
== END | disposition home or self-care (01) ==
LOC: Rad HDHVI 15:56
PROVIDERS: ATTEND Internal Medicine Cardiovascular Disease
DX: I08.3 Combined rheumatic disorders of mitral, aortic and tricuspid valves (principal); I10 Essential (primary) hypertension; E78.5 Hyperlipidemia, unspecified
CPT/HCPCS: 93306

== ENCOUNTER → 2022-11-08 | Outpatient (CLI) | payer MEDICARE, MEDICAID ==
[~2022-11-08] VITALS: Ht 149.9 cm; Wt 86.2 kg
[~2022-11-08] MED LIST changes: +ADENOSINE 72 MG in GIVE UN-DILUTED 0 ML IV ONE; +ADENOSINE 90 MG/30 ML INJ IV ONE
== END | disposition home or self-care (01) ==
LOC: Rad HDHVI 14:48
PROVIDERS: ATTEND Internal Medicine Cardiovascular Disease
DX: R07.89 Other chest pain (principal); I10 Essential (primary) hypertension; E11.42 Type 2 diabetes mellitus with diabetic polyneuropathy; E78.5 Hyperlipidemia, unspecified
CPT/HCPCS: 78452; 93005; 96374; 96375; A9500; J0153

== ENCOUNTER → 2023-01-11 | Outpatient (CLI) | payer MEDICARE, MEDICAID ==
[~2023-01-11] MED LIST changes: -ADENOSINE 72 MG in GIVE UN-DILUTED 0 ML IV ONE; -ADENOSINE 90 MG/30 ML INJ IV ONE
== END | disposition home or self-care (01) ==
LOC: Rad HDHVI 08:07
PROVIDERS: ATTEND Internal Medicine Cardiovascular Disease
DX: I65.23 Occlusion and stenosis of bilateral carotid arteries (principal); I10 Essential (primary) hypertension; E78.5 Hyperlipidemia, unspecified
CPT/HCPCS: 93880

== ENCOUNTER → 2023-01-18 | Outpatient (CLI) | payer MEDICARE, MEDICAID | END | disposition home or self-care (01) | LOC: Rad HDHVI 10:58 | PROVIDERS: ATTEND Internal Medicine Cardiovascular Disease | DX: M16.0 Bilateral primary osteoarthritis of hip (principal) | CPT/HCPCS: 72192 ==

== ENCOUNTER → 2023-05-29 | Outpatient (CLI) | payer MEDICARE, MEDICAID ==
[2023-05-29 11:00] LABS: Potassium 4.6 mmol/L (3.5-5.1)
[2023-05-29 11:01] LABS: Calcium 9.4 mg/dL (8.7-10.4)
[2023-05-29 11:06] LABS: BUN/Creatinine Ratio 18.1 (10.0-20.0)
[2023-05-29 11:08] LABS: Albumin 4.2 g/dL (3.2-4.8); Phosphorus 2.8 mg/dL (2.4-5.1)
== END | disposition home or self-care (01) ==
LOC: LAB 10:10
PROVIDERS: ATTEND Podiatrist
DX: M19.072 Primary osteoarthritis, left ankle and foot (principal)
CPT/HCPCS: 36415; 80069

== ENCOUNTER → 2024-03-06 | Outpatient (CLI) | payer MEDICARE, MEDICAID ==
[~2024-03-06] MED LIST changes: -MELO-335 PO; +MELO15TA29 PO; +READI-CAT 2 (BARIUM SULF)(VANILLA SMOOTHIE) 450ML ONE
== END | disposition home or self-care (01) ==
LOC: Rad HDHVI 12:13
PROVIDERS: ATTEND Internal Medicine Cardiovascular Disease
DX: K57.32 Diverticulitis of large intestine without perforation or abscess without bleeding (principal)
CPT/HCPCS: 74176

== ENCOUNTER → 2024-04-29 | Outpatient (CLI) | payer MEDICARE, MEDICAID ==
[~2024-04-29] VITALS: Ht 152.4 cm; Wt 80.7 kg
[~2024-04-29] MED LIST changes: +ADENOSINE 68 MG in GIVE UN-DILUTED 0 ML IV ONE; +ADENOSINE 90 MG/30 ML INJ IV ONE; -READI-CAT 2 (BARIUM SULF)(VANILLA SMOOTHIE) 450ML ONE
== END | disposition home or self-care (01) ==
LOC: Rad HDHVI 13:41
PROVIDERS: ATTEND Internal Medicine Cardiovascular Disease
DX: I11.0 Hypertensive heart disease with heart failure (principal); I50.23 Acute on chronic systolic (congestive) heart failure; E11.40 Type 2 diabetes mellitus with diabetic neuropathy, unspecified; R07.89 Other chest pain; M79.7 Fibromyalgia; E78.00 Pure hypercholesterolemia, unspecified
CPT/HCPCS: 78452; 93005; 96374; 96375; A9500; J0153

== ENCOUNTER → 2024-05-20 | Outpatient (CLI) | payer MEDICARE, MEDICAID ==
[~2024-05-20] MED LIST changes: -ADENOSINE 68 MG in GIVE UN-DILUTED 0 ML IV ONE; -ADENOSINE 90 MG/30 ML INJ IV ONE
--- NOTE | 2024-05-21 13:31 | DVHSR ---
APPROVED REPORT EXAM: Two-dimensional and M-mode echocardiogram with Doppler and color Doppler. DIMENSIONS LVDd4.3 (3.8-5.7cm)LA (2D)4.2 (1.9-4.0cm)Aortic Root3.2 (2.0-3.7cm) LVDs3.0 (2.5-4.0cm)LA (MM) (1.9-4.0cm)Aortic Cusp Exc1.7 (1.5-2.0cm) EF (%) 59.5 (55-70%)Rt. Atrium2.5 (1.9-4.0cm)Asc. Aorta cm IVSd1.2 (0.7-1.1cm)RV (D)2.5 (1.8-2.4cm) PWd1.2 (0.7-1.1cm) Mitral Valve MitralMitral Stenosis E wave0.77m/sMV Mean GR.mmHg A wave1.05m/sMV Peak GR.57mmHg E/A ratio0.72D MVAcm2 DECEL [id number] 1/2 [place] Aortic Valve Aortic ValveAortic Stenosis V10.80m/[place] Mean GR.4mmHg V21.46m/[place] Peak GR.8mmHg AI P 1/2 Mibv083.51ms Pulmonic Valve V20.78m/s Tricuspid Valve TR Velocity2.74m/s [id number] LEFT VENTRICLE The Ejection Fraction is >55%. ATRIA The left atrium is mildly dilated. The right atrium size is normal. MITRAL VALVE The mitral valve is normal in structure and function. Mitral regurgitation is mild. PULMONIC VALVE The pulmonic valve is not well visualized. There is trace to mild pulmonic valvular regurgitation. TRICUSPID VALVE The tricuspid valve is grossly normal. There is mild tricuspid regurgitation. AORTIC VALVE The aortic valve opens well. There is mild aortic regurgitation. GREAT VESSELS The aortic root is normal size. PERICARDIAL EFFUSION There is no pericardial effusion. Conclusion LVH EF >55% MILD TR, MR, AI
== END | disposition home or self-care (01) ==
LOC: Rad HDHVI 10:53
PROVIDERS: ATTEND Internal Medicine Cardiovascular Disease
DX: I08.8 Other rheumatic multiple valve diseases (principal); I11.9 Hypertensive heart disease without heart failure; R07.89 Other chest pain
CPT/HCPCS: 93306

== ENCOUNTER → 2024-07-23 | Outpatient (CLI) | payer MEDICARE, MEDICAID ==
--- NOTE | 2024-07-23 16:09 | DVH ---
XY CHEST TWO VIEWS ROUTINE CLINICAL HISTORY: SOB COMPARISON: None TECHNIQUE: Frontal and lateral view of the chest was obtained FINDINGS: Lines and Tubes: None Lungs: No focal consolidation. Pleura: No effusion. No pneumothorax. Cardiomediastinal contours: Unremarkable Bones: No acute osseous abnormality. IMPRESSION: No acute cardiopulmonary disease.
== END | disposition home or self-care (01) ==
LOC: Rad HDHVI 11:41
PROVIDERS: ATTEND Internal Medicine Cardiovascular Disease
DX: R06.02 Shortness of breath (principal)
CPT/HCPCS: 71046

== ENCOUNTER → 2024-09-09 | Outpatient (CLI) | payer MEDICARE, MEDICAID ==
[~2024-09-09] MED LIST changes: +FURO1TAB33 PO; +INSU70IN3 SC; +POTA-215 PO; +POTA-228 PO; +RIVA10TA PO
[2024-09-09 10:00] VITALS: BP 119/66; PULSE 71; RESP 16; O2SAT 100
[2024-09-09 10:14] VITALS: BP 126/67; PULSE 85; RESP 16; O2SAT 100
--- NOTE | 2024-09-09 12:48 | DVH ---
EXAM: XY CHEST TWO VIEWS ROUTINE CLINICAL HISTORY: pain COMPARISON: XY CHEST TWO VIEWS ROUTINE on DOS: 07/23/24, CXR2 on DOS: 05/03/22, CHEST TWO VIEWS ROUTIN E on DOS: 05/03/22 TECHNIQUE: Frontal and lateral view of the chest was obtained FINDINGS: Lines and Tubes: None Lungs: No focal consolidation. Pleura: No effusion. No pneumothorax. Cardiomediastinal contours: Unremarkable. Atherosclerotic vascular calcifications of the thoracic ao rta are noted. Bones: No acute osseous abnormality. IMPRESSION: No acute cardiopulmonary disease.
== END | disposition home or self-care (01) ==
LOC: Rad HDHVI 09:48
PROVIDERS: ATTEND Internal Medicine Cardiovascular Disease
DX: Z01.818 Encounter for other preprocedural examination (principal); I70.0 Atherosclerosis of aorta; R07.89 Other chest pain
CPT/HCPCS: 71046; 93005; G0463

== ENCOUNTER 2024-09-12 06:54 | Day surgery (SDC) | payer MEDICARE, MEDICAID ==
[2024-09-09 12:23] LABS: Basophils # (auto) 0 10 ^3/uL (0-0.2); Basophils % (auto) 0.5 % (0.0-2.0); Eosinophils # (auto) 0.1 10 ^3/uL (0-0.8); Eosinophils % (auto) 1.3 % (0.0-7.0); Hematocrit 46.1 % (36.0-46.0); Hemoglobin 15.2 g/dL (12.2-16.2); Lymphocytes # (auto) 2.2 10 ^3/uL (0.4-5.4); Lymphocytes % (auto) 39.5 % (10.0-50.0); Mean Corpuscular Hemoglobin 28.9 pg (28.0-32.0); Mean Corpuscular Hgb Conc. 32.9 g/dL (32.0-36.0); Mean Corpuscular Volume 87.8 fL (80.0-100.0); Monocytes # (auto) 0.4 10 ^3/uL (0-1.3); Monocytes % (auto) 6.6 % (0.0-12.0); Neutrophils % (auto) 52.1 % (37.0-80.0); Nucleated Red Blood Cells % 0.1 %; Platelet Count (auto) 173 10^3/uL (140-450); Red Blood Cells 5.25 10^6/uL (4.0-5.20); Red Cell Distribution Width 13.8 % (11.8-14.3); White Blood Cell 5.7 10^3/uL (4.4-10.8)
[2024-09-09 12:38] LABS: INR 1.03 (0.9-1.15); Partial Thromboplastin Time 26.1 SEC (24.5-34.5); Prothrombin Time 10.9 sec (9.3-11.8)
[2024-09-09 13:30] LABS: Chloride 107 mmol/L (98-107)
[2024-09-09 13:31] LABS: Anion Gap 5 (5-15); Carbon Dioxide 30 mmol/L (20-31); Sodium 142 mmol/L (136-145)
[2024-09-09 13:32] LABS: Calcium 10.3 mg/dL (8.7-10.4)
[2024-09-09 13:37] LABS: BUN/Creatinine Ratio 21.9 (10.0-20.0); Blood Urea Nitrogen 16 mg/dL (9-23); Glucose 147 mg/dL (74-106)
[~2024-09-12] VITALS: Ht 149.9 cm; Wt 75.7 kg
[2024-09-12] VITALS (7 sets, daily range): BP systolic 120–159; BP diastolic 62–79; PULSE 64–68; RESP 12–15; TEMP 97.7; O2SAT 96–100
[2024-09-12] MEDS ORDERED: IODIXANOL 320MG/ML 100ML BTL IV ONE (07:22)
[2024-09-12] MEDS ORDERED: IOHEXOL 350 MG/ML 100ML IJ ONE (07:28)
[2024-09-12] MEDS ORDERED: LIDOCAINE 2%HCL (LOCAL ANESTH.) INJ 20ML MDV ONE (07:36)
[2024-09-12] MEDS ORDERED: ANGIOMAX 250 MG VIAL IV ONE (07:36)
[2024-09-12] MEDS ORDERED: fentaNYL CITRATE 100 MCG/2 ML VL ONE (07:36)
[2024-09-12] MEDS ORDERED: SODIUM CHL 0.9% 0 ML ONE (07:36)
[2024-09-12] MEDS ORDERED: MIDAZOLAM HCL 2MG/2ML 2ml VIAL (1mg/ml) ONE (07:36)
[2024-09-12] MEDS ORDERED: NITROGLYCERIN 0.4MG/DOSE SPRAY 4.9GM ONE (08:18)
--- NOTE | 2024-09-12 08:30 | DVHHP ---
ADMIT DATE: 09/12/2024 HISTORY OF PRESENT ILLNESS: The patient is 74 years old with history of diabetes, diabetic neuropathy, vasculopathy, nephropathy, history of hypertension, accelerated, diastolic dysfunction. Echocardiogram shows an ejection fraction of around greater than 55%. The patient is having ongoing symptoms of shortness of breath. Also ongoing symptoms of chest discomfort. Stress Cardiolite shows the patient to have mild inferior wall reversibility and because of above presentation, it is felt that the patient should undergo coronary angiography to define coronary anatomy. Risks and benefits were explained to the patient. The patient understands and agrees. FAMILY HISTORY: Significant for coronary artery disease. Mother with coronary artery disease. REVIEW OF SYSTEMS: She denies any hypertension. No history of hyperlipidemia. No history of congestive heart failure, systolic. No history of melena, hematochezia, hematemesis, hemoptysis or hematuria. Denies any GI symptomatology such as inflammatory bowel disease, diarrhea, constipation, gastritis or gastric ulceration. Denies any neurological disorders such as CVA, seizure disorder or any kind of movement disorder. The patient denies any history of COPD or lung disease. No history of tobacco or alcohol use at this time. No history of any claudication symptoms as well at this time. PHYSICAL EXAMINATION: VITAL SIGNS: Blood pressure is elevated 156/84, pulse of 70 and regular, O2 saturation 94% on room air. HEENT: Pupils are reactive. Funduscopic exam shows no AV nicking, no exudates, no papilledema. No cataract appreciated at this time. No JVD appreciated. Carotid pulses are 2+ symmetrical, normal upstroke and contour. Oral mucosa moist. Posterior pharynx without any exudates. NECK: No cervical adenopathy, no supraclavicular adenopathy. PULMONARY: Clear to auscultation. Tympanic to percussion. CARDIOVASCULAR: Regular rate. PMI is not displaced. ABDOMEN: Soft, nontender, normal bowel sounds. SKIN: Unremarkable. EXTREMITIES: Unremarkable. NEUROLOGIC: The patient is intact. DIAGNOSTIC DATA: EKG shows sinus rhythm, nonspecific ST-T changes. ASSESSMENT AND PLAN: Thus, the patient with multiple risk factors for coronary artery disease, especially diabetes and hypertension. Now to undergo left heart catheterization to define coronary anatomy because of ongoing chest pain and shortness of breath. Further recommendations after the angiogram. Sal Girard MD SA/NIDA TID: [id number] RECEIPT: [id number]
--- NOTE | 2024-09-12 08:46 | DVHOP ---
DATE OF SURGERY: 09/12/2024 PROCEDURES PERFORMED: * Selective left and right coronary angiography. * Ventriculogram. * Right iliac angiography. * Conscious sedation. DESCRIPTION OF PROCEDURE: The patient was prepped and draped under sterile condition. Xylocaine 1% used to anesthetize the right groin. Using Cook needle, right femoral artery was engaged. With Seldinger technique, a 6-Estonian sheath in the right femoral artery. Using 6-Estonian JL4 catheter and 6-Estonian JR4 catheter, selective left and right coronary angiographies were performed. Using 6-Estonian pigtail catheter, ventriculogram was done. Total contrast used 40 mL Optiray. Total fluoro time was 1 minute. There were no complications. The patient tolerated the procedure well. Right femoral arteriotomy site was closed using the Angio-Seal device. RESULTS: * Left main without any flow-restrictive lesion. * Left anterior descending artery without any flow-restrictive lesion. * Circumflex without any flow-restrictive lesion. * Right coronary artery without any flow-restrictive lesion. * Left ventricular function was preserved with an estimated EF of 55-60% with an LVEDP of 18-20 mmHg with left ventricular systolic pressure of 116. Therefore, the patient's symptoms of shortness of breath most likely secondary to elevated blood pressures, elevated LVEDP. Aggressive afterload and preload reduction needs to be initiated. At this time, the patient does not require any catheter-based or surgical intervention. Sal Girard MD SA/KAREY/BJ TID: [id number] RECEIPT: [id number]
--- NOTE | 2024-09-12 08:49 | DVHDS ---
DATE OF DISCHARGE: 09/12/2024 DISCHARGE DIAGNOSES: Diastolic dysfunction, accelerated hypertension, diabetes, diabetic neuropathy, vasculopathy, nephropathy, coronary angiography failed to demonstrate any significant epicardial disease with elevated LVEDP of 18-20 mmHg with no gradient across the aortic valve. The patient's blood pressure needs to be adequately controlled. Otherwise, no surgical or catheter-based intervention is required. We will continue to follow the patient. Stable at the time of discharge. DISPOSITION: Home. ACTIVITY: As instructed. DIET: Will be 2 gram sodium diet. Sal Girard MD SA/HYACINTH TID: [id number] RECEIPT: [id number]
[2024-09-12] MEDS ORDERED: ACETAMINOPHEN 325 MG TAB PO ONE (10:15)
== END 2024-09-12 10:57 | disposition home or self-care (01) ==
LOC: CATH 06:54
PROVIDERS: ATTEND Internal Medicine Cardiovascular Disease
DX: I25.10 Atherosclerotic heart disease of native coronary artery without angina pectoris (principal); I10 Essential (primary) hypertension; Z86.2 Personal history of diseases of the blood and blood-forming organs and certain disorders involving the immune mechanism; Z86.711 Personal history of pulmonary embolism
CPT/HCPCS: 36415; 80048; 85025; 85610; 85730; 93458; C1760; C1894; J1644; J2250; J3010; J7030; Q9967; 99152

== ENCOUNTER → 2024-09-20 | Outpatient (CLI) | payer MEDICARE, MEDICAID ==
[~2024-09-20] MED LIST changes: -DAPA1TAB4 PO; -DULA0.5I SC; -ENAL1TAB48 PO; -INSLANTI SC; -LEVO500T31 PO; -LOPE2CAP PO; -LOPE2CAP15 PO; -MELO15TA29 PO; -METF-370 PO; -METH-1182 PO; -NITR-79 PO; -PANT1INJ3 PO; -POTA-215 PO; -RIV20T PO; -RIVA20TA PO
[2024-09-20 11:50] VITALS: BP 130/60; PULSE 80; RESP 16; O2SAT 95
--- NOTE | 2024-09-20 12:18 | DVH ---
CLINICAL INDICATION: PAIN POST INJURY TECHNIQUE: 3 radiographic views of the left ankle were obtained. Comparison: L ANKLE COMPLETE on DOS: 03/07/22 FINDINGS/IMPRESSION: There is no evidence of acute fracture or dislocation. Postsurgical changes are visualized in the distal ankle. Small plantar calcaneal enthesophyte. Soft tissue swelling about the left ankle.
== END | disposition home or self-care (01) ==
LOC: Rad HDHVI 11:26
PROVIDERS: ATTEND Internal Medicine Cardiovascular Disease
DX: M77.32 Calcaneal spur, left foot (principal); M79.89 Other specified soft tissue disorders; M25.475 Effusion, left foot; Z98.890 Other specified postprocedural states
CPT/HCPCS: 73610; G0463

== ENCOUNTER → 2024-09-30 | Outpatient (CLI) | payer MEDICARE, MEDICAID | END | disposition home or self-care (01) | LOC: Rad HDHVI 12:15 | PROVIDERS: ATTEND Internal Medicine Cardiovascular Disease | DX: I50.33 Acute on chronic diastolic (congestive) heart failure (principal) | CPT/HCPCS: 93880 ==

== ENCOUNTER 2024-12-30 11:09 | Outpatient (CLI) | payer MEDICARE, MEDICAID ==
[2024-12-30 11:08] VITALS: BP 117/64; PULSE 62; RESP 17; O2SAT 99
[2024-12-30] MEDS: MULTIPLE VIT 10 ML IV ONE (11:39)
[2024-12-30] MEDS: MVI in SODIUM CHLORIDE 0.9% 500 ML IVB ONE (11:40)
[2024-12-30 13:55] VITALS: BP 141/75; PULSE 58; RESP 18; O2SAT 99
== END 2024-12-30 17:00 | disposition home or self-care (01) ==
LOC: CHF HDHVI 11:09
PROVIDERS: ATTEND Internal Medicine Cardiovascular Disease
DX: E86.0 Dehydration (principal); I11.0 Hypertensive heart disease with heart failure; I50.33 Acute on chronic diastolic (congestive) heart failure; I25.10 Atherosclerotic heart disease of native coronary artery without angina pectoris; Z98.890 Other specified postprocedural states; Z86.711 Personal history of pulmonary embolism; Z86.2 Personal history of diseases of the blood and blood-forming organs and certain disorders involving the immune mechanism
CPT/HCPCS: 96365; 96366; G0463; J3411; J3475; J7040; 96360; 96361

== ENCOUNTER 2025-03-05 08:18 | Outpatient (CLI) | payer MEDICARE, MEDICAID | END 2025-03-05 17:00 | disposition home or self-care (01) | LOC: Rad HDHVI 08:18 | PROVIDERS: ATTEND Internal Medicine Cardiovascular Disease | DX: I82.432 Acute embolism and thrombosis of left popliteal vein (principal); Z86.718 Personal history of other venous thrombosis and embolism | CPT/HCPCS: 93970 ==

== ENCOUNTER 2025-03-10 10:21 | Outpatient (CLI) | payer MEDICARE, MEDICAID ==
[2025-03-10 11:08] LABS: Blood Urea Nitrogen 16.0 mg/dL (9-23)
== END 2025-03-10 17:00 | disposition home or self-care (01) ==
LOC: LAB 10:21
PROVIDERS: ATTEND Internal Medicine Cardiovascular Disease
DX: R94.4 Abnormal results of kidney function studies (principal)
CPT/HCPCS: 36415; 82565; 84520